=== PATIENT | male | born 1965 | race African-American/Black ===

== ENCOUNTER 2020-05-22 08:33 | Outpatient (REF) | payer BC, SELFPAY ==
[2020-05-22 09:42] LABS: MANUAL DIFF FLAG NO
[2020-05-22 09:45] LABS: Basophils Percent Auto 0.2 % (0-2); Eosinophils Percent Auto 0.3 % (0-4); Hematocrit 41.7 % (42-52); Hemoglobin 12.9 g/dl (14.0-18.0); Imm Gran Abs Auto 0.01 X10*3/uL (0.00-0.03); Imm Gran Pct Auto 0.2 % (0.0-0.4); Lymphocytes Absolute Auto 1.4 X10*3/uL (1.2-4.9); Lymphocytes Percent Auto 24.9 % (20-40); Mean Corpuscular HGB Conc 30.9 g/dl (31.0-36.0); Mean Corpuscular Hemoglobin 26.3 pg (27.0-33.0); Mean Corpuscular Volume 84.9 fL (80-98); Mean Platelet Volume 10.1 fL (9.4-12.4); Monocytes Absolute Auto 1.1 X10*3/uL (0.1-1.2); Monocytes Percent Auto 18.6 % (2-11); Neutrophils Absolute Auto 3.2 X10*3/uL (2.0-8.3); Neutrophils Percent Auto 55.8 % (45-73); Platelet Count 336 X10*3/uL (160-400); Red Blood Count 4.91 X10*6/uL (4.60-5.80); Red Cell Distribution Width 15.1 % (11.0-16.0); White Blood Count 5.8 X10*3/uL (4.8-10.8)
[2020-05-22 10:04] LABS: Glucose Urine UA 100 MG/DL (NEG); Leukocyte Esterase Urine NEG (NEG); Nitrite Urine NEG (NEG); Specific Gravity - Urine >= 1.030 (1.005-1.025); Urine Blood TRACE (NEG); Urine Ketones NEG (NEG); Urine Protein NEG (NEG-TRACE)
[2020-05-22 10:06] LABS: Appearance Urine CLEAR; Color Urine YELLOW
[2020-05-22 10:16] LABS: RBC Urine 0 /HPF (0); Squamous Epithelial Cell Urine TRACE /LPF; WBC Urine 0 /HPF (0-4)
[2020-05-22 10:17] LABS: Mucus Urine 3+ /LPF
[2020-05-22 10:27] LABS: Alanine Aminotransferase 21 U/L (0-40); Alkaline Phosphatase 92 U/L (39-117); Anion Gap 11 (12-20); Aspartate Amino Transferase 29 U/L (5-37); Bilirubin Total 0.6 mg/dL (0.0-1.0); Blood Urea Nitrogen 12 mg/dL (9-16); Calcium 8.9 mg/dL (8.4-10.2); Carbon Dioxide 30 mmol/L (22-29); Chloride 100 mmol/L (96-108); Cholesterol 187 mg/dL; Estimated Glomerular Filt Rate > 60; Glucose Fasting 83 mg/dL (60-99); HDL Cholesterol 32 mg/dL; LDL Cholesterol Calculated 141 mg/dl; Potassium 4.1 mmol/l (3.3-5.1); Sodium 137 mmol/L (135-145); Total Protein 8.2 g/dL (6.5-8.0); Triglycerides 74 mg/dL
[2020-05-22 10:48] LABS: Prostate Specific Antigen Scr 0.24 ng/mL (<0.05-4.0)
[2020-05-22 11:25] LABS: Erythrocyte Sedimentation Rate 32 MM/HR (0-15)
== END 2020-05-22 08:34 | disposition home or self-care (01) ==
LOC: HO.LAB 08:33
PROVIDERS: Visit Provider Internal Medicine
DX: Z00.00 Encounter for general adult medical examination without abnormal findings (principal); K50.90 Crohn's disease, unspecified, without complications; R70.0 Elevated erythrocyte sedimentation rate; D50.9 Iron deficiency anemia, unspecified; E78.00 Pure hypercholesterolemia, unspecified; I10 Essential (primary) hypertension
CPT/HCPCS: 36415; 80053; 80061; 81001; 81003; 84153; 85025; 85652

== ENCOUNTER 2021-05-29 11:07 | Outpatient (REF) | payer BC, SELFPAY ==
[2021-05-29 11:11] LABS: MANUAL DIFF FLAG NO
[2021-05-29 11:38] LABS: Basophils Percent Auto 0.3 % (0-2); Eosinophils Absolute Auto 0.3 X10*3/uL (0.0-0.4); Eosinophils Percent Auto 3.9 % (0-4); Hematocrit 39.6 % (42.0-52.0); Hemoglobin 12.1 g/dl (14.0-18.0); Imm Gran Abs Auto 0.02 X10*3/uL (0.00-0.03); Imm Gran Pct Auto 0.3 % (0.0-0.4); Lymphocytes Absolute Auto 2.4 X10*3/uL (1.2-4.9); Lymphocytes Percent Auto 33.5 % (20-40); Mean Corpuscular HGB Conc 30.6 g/dl (31.0-36.0); Mean Corpuscular Volume 85.2 fL (80.0-98.0); Mean Platelet Volume 10.3 fL (9.4-12.4); Monocytes Absolute Auto 0.9 X10*3/uL (0.1-1.2); Monocytes Percent Auto 13.1 % (2-11); Neutrophils Absolute Auto 3.5 x10*3/uL (2.0-8.3); Neutrophils Percent Auto 48.9 % (45-73); Platelet Count 385 X10*3/uL (160-400); Red Blood Count 4.65 X10*6/uL (4.60-5.80); Red Cell Distribution Width 15.1 % (11.0-16.0); White Blood Count 7.1 X10*3/uL (4.8-10.8)
[2021-05-29 11:48] LABS: Appearance Urine CLEAR; Color Urine YELLOW; Glucose Urine UA NEG (NEG); Leukocyte Esterase Urine NEG (NEG); Nitrite Urine NEG (NEG); Urine Blood NEG (NEG); Urine Ketones NEG (NEG); Urine Protein NEG (NEG-TRACE)
[2021-05-29 12:59] LABS: Alanine Aminotransferase 32 U/L (0-40); Albumin Level 3.7 g/dL (3.5-5.0); Alkaline Phosphatase 93 U/L (39-117); Anion Gap 11 (12-20); Aspartate Amino Transferase 37 U/L (5-37); Bilirubin Total 0.5 mg/dL (0.0-1.0); Blood Urea Nitrogen 10 mg/dL (9-16); Calcium 9.2 mg/dL (8.4-10.2); Carbon Dioxide 27 mmol/L (22-29); Chloride 102 mmol/L (96-108); Cholesterol 203 mg/dL; Estimated Glomerular Filt Rate > 60; Glucose Random 73 mg/dL (60-115); HDL Cholesterol 35 mg/dL; Iron 64 mcg/dL (45-160); LDL Cholesterol Calculated 146 mg/dl; Percent Iron Saturation 21 % (15-50); Potassium 4.2 mmol/L (3.3-5.1); Sodium 136 mmol/L (135-145); Total Iron Binding Capacity 307 mcg/dL (228-428); Total Protein 7.7 g/dL (6.5-8.0); Triglycerides 113 mg/dL; Unsaturated Iron Binding 243 ug/dL
== END 2021-05-29 11:08 | disposition home or self-care (01) ==
LOC: HO.LNP 11:07
PROVIDERS: Visit Provider Internal Medicine
DX: Z00.00 Encounter for general adult medical examination without abnormal findings (principal); D50.9 Iron deficiency anemia, unspecified; E78.00 Pure hypercholesterolemia, unspecified; I10 Essential (primary) hypertension
CPT/HCPCS: 80053; 80061; 81003; 83540; 84153; 85025

== ENCOUNTER 2022-06-03 10:54 | Outpatient (REF) | payer BC, SELFPAY ==
[2022-06-03 10:58] LABS: MANUAL DIFF FLAG NO
[2022-06-03 11:04] LABS: Basophils Percent Auto 0.4 % (0-2); Eosinophils Absolute Auto 0.3 X10*3/uL (0.0-0.4); Eosinophils Percent Auto 4.1 % (0-4); Hematocrit 46.4 % (42.0-52.0); Hemoglobin 14.7 g/dl (14.0-18.0); Imm Gran Abs Auto 0.01 X10*3/uL (0.00-0.03); Imm Gran Pct Auto 0.1 % (0.0-0.4); Lymphocytes Absolute Auto 2.7 X10*3/uL (1.2-4.9); Lymphocytes Percent Auto 38.6 % (20-40); Mean Corpuscular HGB Conc 31.7 g/dl (31.0-36.0); Mean Corpuscular Hemoglobin 27.8 pg (27.0-33.0); Mean Corpuscular Volume 87.9 fL (80.0-98.0); Mean Platelet Volume 10.7 fL (9.4-12.4); Monocytes Absolute Auto 0.9 X10*3/uL (0.1-1.2); Monocytes Percent Auto 12.3 % (2-11); Neutrophils Absolute Auto 3.2 x10*3/uL (2.0-8.3); Neutrophils Percent Auto 44.5 % (45-73); Platelet Count 333 X10*3/uL (160-400); Red Blood Count 5.28 X10*6/uL (4.60-5.80); Red Cell Distribution Width 14.4 % (11.0-16.0); White Blood Count 7.1 X10*3/uL (4.8-10.8)
[2022-06-03 11:08] LABS: Appearance Urine Clear; Color Urine Yellow; Glucose Urine UA Negative (Negative); Leukocyte Esterase Urine Negative (Negative); Nitrite Urine Negative (Negative); Specific Gravity - Urine 1.015 (1.005-1.025); Urine Blood Negative (Negative); Urine Ketones Negative (Negative); Urine Protein Negative (Neg-Trace)
[2022-06-03 11:14] LABS: Bacteria Urine None Seen (None Seen); Hyaline Casts Urine 0-2 /LPF (0-2); RBC Urine 0-2 /HPF (0-2); Squamous Epithelial Cell Urine 0-2 /HPF (0-2); WBC Urine 0-5 /HPF (0-5)
[2022-06-03 11:49] LABS: Alanine Aminotransferase 33 U/L (0-40); Albumin Level 4.2 g/dL (3.5-5.0); Alkaline Phosphatase 85 U/L (39-117); Anion Gap 14 (12-20); Aspartate Amino Transferase 30 U/L (5-37); Bilirubin Total 0.6 mg/dL (0.0-1.0); Blood Urea Nitrogen 13 mg/dL (9-16); Calcium 9.6 mg/dL (8.4-10.2); Carbon Dioxide 29 mmol/L (22-29); Chloride 102 mmol/L (96-108); Cholesterol 242 mg/dL; Estimated Glomerular Filt Rate 58; Glucose Fasting 95 mg/dL (60-99); HDL Cholesterol 45 mg/dL; Iron 104 mcg/dL (45-160); LDL Cholesterol Calculated 178 mg/dl; Percent Iron Saturation 29 % (15-50); Potassium 3.9 mmol/L (3.3-5.1); Sodium 141 mmol/L (135-145); Total Iron Binding Capacity 360 mcg/dL (228-428); Total Protein 8.1 g/dL (6.5-8.0); Triglycerides 97 mg/dL; Unsaturated Iron Binding 256 ug/dL
[2022-06-03 11:55] LABS: PSA,Total (Free>4and<10) 0.28 ng/mL (0.00-4.00)
== END 2022-06-03 10:55 | disposition home or self-care (01) ==
LOC: HO.LNP 10:54
PROVIDERS: Visit Provider Internal Medicine
DX: Z00.00 Encounter for general adult medical examination without abnormal findings (principal); Z12.5 Encounter for screening for malignant neoplasm of prostate; E78.00 Pure hypercholesterolemia, unspecified; I10 Essential (primary) hypertension; D50.9 Iron deficiency anemia, unspecified
CPT/HCPCS: 80053; 80061; 81001; 83540; 84153; 85025

== ENCOUNTER 2022-12-13 11:15 | Outpatient (REF) | payer BC, SELFPAY ==
[2022-12-13 12:40] LABS: Cholesterol 254 mg/dL; HDL Cholesterol 39 mg/dL; LDL Cholesterol Calculated 192 mg/dl; Triglycerides 115 mg/dL
[2022-12-13 13:46] LABS: Reflex LDLD? No
== END 2022-12-13 11:16 | disposition home or self-care (01) ==
LOC: HO.LNP 11:15
PROVIDERS: Visit Provider Internal Medicine
DX: E78.00 Pure hypercholesterolemia, unspecified (principal)
CPT/HCPCS: 80061

== ENCOUNTER 2023-06-10 11:37 | Outpatient (REF) | payer BC, SELFPAY ==
[2023-06-10 11:42] LABS: MANUAL DIFF FLAG NO
[2023-06-10 11:54] LABS: Basophils Percent Auto 0.4 % (0-2); Eosinophils Absolute Auto 0.3 X10*3/uL (0.0-0.4); Eosinophils Percent Auto 3.4 % (0-4); Hematocrit 44.9 % (42.0-52.0); Hemoglobin 13.8 g/dl (14.0-18.0); Imm Gran Abs Auto 0.04 X10*3/uL (0.00-0.03); Imm Gran Pct Auto 0.5 % (0.0-0.4); Lymphocytes Absolute Auto 2.8 X10*3/uL (1.2-4.9); Lymphocytes Percent Auto 34.5 % (20-40); Mean Corpuscular HGB Conc 30.7 g/dl (31.0-36.0); Mean Corpuscular Hemoglobin 26.6 pg (27.0-33.0); Mean Corpuscular Volume 86.5 fL (80.0-98.0); Mean Platelet Volume 10.5 fL (9.4-12.4); Monocytes Absolute Auto 0.9 X10*3/uL (0.1-1.2); Neutrophils Absolute Auto 4.1 x10*3/uL (2.0-8.3); Neutrophils Percent Auto 50.2 % (45-73); Platelet Count 359 X10*3/uL (160-400); Red Blood Count 5.19 X10*6/uL (4.60-5.80); Red Cell Distribution Width 14.7 % (11.0-16.0); White Blood Count 8.2 X10*3/uL (4.8-10.8)
[2023-06-10 11:59] LABS: Appearance Urine Clear; Color Urine Yellow; Glucose Urine UA Negative (Negative); Leukocyte Esterase Urine Negative (Negative); Nitrite Urine Negative (Negative); Specific Gravity - Urine 1.025 (1.005-1.025); Urine Blood Negative (Negative); Urine Ketones Negative (Negative); Urine Protein Negative (Neg-Trace)
[2023-06-10 12:02] LABS: Bacteria Urine None Seen (None Seen); Hyaline Casts Urine 0-2 /LPF (0-2); RBC Urine 0-2 /HPF (0-2); Squamous Epithelial Cell Urine 0-2 /HPF (0-2); WBC Urine 0-5 /HPF (0-5)
[2023-06-10 12:17] LABS: Alanine Aminotransferase 26 U/L (0-40); Alkaline Phosphatase 97 U/L (39-117); Anion Gap 8 (12-20); Aspartate Amino Transferase 26 U/L (5-37); Bilirubin Total 0.6 mg/dL (0.0-1.0); Blood Urea Nitrogen 12 mg/dL (9-16); Calcium 9.9 mg/dL (8.4-10.2); Carbon Dioxide 30 mmol/L (22-29); Chloride 104 mmol/L (96-108); Cholesterol 224 mg/dL (<200); Estimated Glomerular Filt Rate > 60; Glucose Fasting 85 mg/dL (60-99); HDL Cholesterol 43 mg/dL (>40); Iron 66 mcg/dL (45-160); LDL Cholesterol Calculated 159 mg/dL (<100); Percent Iron Saturation 23 % (15-50); Potassium 3.9 mmol/L (3.3-5.1); Sodium 138 mmol/L (135-145); Total Iron Binding Capacity 291 mcg/dL (228-428); Total Protein 8.4 g/dL (6.5-8.0); Triglycerides 110 mg/dL (<150); Unsaturated Iron Binding 225 ug/dL
[2023-06-10 12:27] LABS: Prostate Specific Antigen 0.29 ng/mL (<0.05-4.0)
== END 2023-06-10 11:38 | disposition home or self-care (01) ==
LOC: HO.LNP 11:37
PROVIDERS: Visit Provider Internal Medicine
DX: Z00.00 Encounter for general adult medical examination without abnormal findings (principal); Z12.5 Encounter for screening for malignant neoplasm of prostate; D50.9 Iron deficiency anemia, unspecified; E78.00 Pure hypercholesterolemia, unspecified; I10 Essential (primary) hypertension
CPT/HCPCS: 80053; 80061; 81001; 83540; 84153; 85025

== ENCOUNTER 2024-06-17 11:19 | Outpatient (REF) | payer BC, SELFPAY ==
[2024-06-17 11:23] LABS: MANUAL DIFF FLAG NO
[2024-06-17 12:08] LABS: Appearance Urine Clear; Color Urine Yellow; Glucose Urine UA Negative (Negative); Leukocyte Esterase Urine Negative (Negative); Nitrite Urine Negative (Negative); PH 5.5 (5.0-9.0); Urine Blood Negative (Negative); Urine Ketones Negative (Negative); Urine Protein Negative (Neg-Trace)
[2024-06-17 12:09] LABS: Basophils Percent Auto 0.4 % (0-2); Eosinophils Absolute Auto 0.3 X10*3/uL (0.0-0.4); Eosinophils Percent Auto 3.8 % (0-4); Hematocrit 42.6 % (42.0-52.0); Hemoglobin 13.6 g/dl (14.0-18.0); Imm Gran Abs Auto 0.03 X10*3/uL (0.00-0.03); Imm Gran Pct Auto 0.4 % (0.0-0.4); Lymphocytes Absolute Auto 2.6 X10*3/uL (1.2-4.9); Lymphocytes Percent Auto 34.9 % (20-40); Mean Corpuscular HGB Conc 31.9 g/dl (31.0-36.0); Mean Corpuscular Hemoglobin 27.9 pg (27.0-33.0); Mean Corpuscular Volume 87.5 fL (80.0-98.0); Mean Platelet Volume 10.6 fL (9.4-12.4); Monocytes Absolute Auto 0.8 X10*3/uL (0.1-1.2); Neutrophils Absolute Auto 3.6 x10*3/uL (2.0-8.3); Neutrophils Percent Auto 49.5 % (45-73); Platelet Count 304 X10*3/uL (160-400); Red Blood Count 4.87 X10*6/uL (4.60-5.80); Red Cell Distribution Width 13.9 % (11.0-16.0); White Blood Count 7.3 X10*3/uL (4.8-10.8)
[2024-06-17 12:12] LABS: Bacteria Urine None Seen (None Seen); Hyaline Casts Urine 0-2 /LPF (0-2); RBC Urine 0-2 /HPF (0-2); Squamous Epithelial Cell Urine 0-2 /HPF (0-2); WBC Urine 0-5 /HPF (0-5)
[2024-06-17 12:37] LABS: Alanine Aminotransferase 32 U/L (0-40); Alkaline Phosphatase 76 U/L (39-117); Anion Gap 11 (12-20); Aspartate Amino Transferase 42 U/L (5-37); Bilirubin Total 0.6 mg/dL (0.0-1.0); Blood Urea Nitrogen 14 mg/dL (9-16); Calcium 9.4 mg/dL (8.4-10.2); Carbon Dioxide 27 mmol/L (22-29); Chloride 104 mmol/L (96-108); Cholesterol 188 mg/dL (<200); Estimated Glomerular Filt Rate > 60; Glucose Fasting 86 mg/dL (60-99); HDL Cholesterol 34 mg/dL (>40); Iron 81 mcg/dL (45-160); LDL Cholesterol Calculated 134 mg/dL (<100); Percent Iron Saturation 28 % (15-50); Potassium 3.8 mmol/L (3.3-5.1); Sodium 138 mmol/L (135-145); Total Iron Binding Capacity 285 mcg/dL (228-428); Total Protein 7.8 g/dL (6.5-8.0); Triglycerides 101 mg/dL (<150); Unsaturated Iron Binding 204 ug/dL
[2024-06-17 12:45] LABS: PSA,Total (Free>4and<10) 0.31 ng/mL (0.00-4.00)
--- OUTSIDE RECORDS SUMMARY | 2024-06-23 01:54 | XMS_ITS | Patient Health Record ---
Author Organization Antonio Leung MD Address [address] [place], [place] [id number] Care Team Providers Care General Internal Medicine Doctor Name Role Phone Antonio Leung Primary Care Provider [phone] ALLERGIES No Known Allergies RESULTS Component Value Reference Range Notes Complete Blood Count Auto Di ff Reviewed date:06/17/2024 03:15:00 PM Interpretation: Performing Lab:[facility], [address] [place] [phone] Notes/Report: White Blood Count 7.3 4.8-10.8 X10*3/uL Red Blood Count 4.87 4.60-5.80 X10*6/uL Hemoglobin 13.6 14.0-18.0 g/dl Hematocrit 42.6 42.0-52.0 % Mean Corpuscular Volume 87.5 80.0-98.0 fL Mean Corpuscular Hemoglobin 27.9 27.0-33.0 pg Mean Corpuscular HGB Conc 31.9 31.0-36.0 g/dl Red Cell Distribution Width 13.9 11.0-16.0 % Platelet Count 304 160-400 X10*3/uL Mean Platelet Volume 10.6 9.4-12.4 fL Neutrophils Percent Auto 49.5 45-73 % Imm Gran Pct Auto 0.4 0.0-0.4 % Lymphocytes Percent Auto 34.9 20-40 % Monocytes Percent Auto 11.0 2-11 % Eosinophils Percent Auto 3.8 0-4 % Basophils Percent Auto 0.4 0-2 % NRBC Pct Auto 0.0 0.0-0.2 /100WBC Neutrophils Absolute Auto 3.6 2.0-8.3 x10*3/u L Imm Gran Abs Auto 0.03 0.00-0.03 X10*3/uL Lymphocytes Absolute Auto 2.6 1.2-4.9 X10*3/u L Monocytes Absolute Auto 0.8 0.1-1.2 X10*3/uL Eosinophils Absolute Auto 0.3 0.0-0.4 X10*3/u L Basophils Absolute Auto 0.0 0.0-0.2 X10*3/uL NRBC Abs Auto 0.000 0.0-0.012 X10*3/uL Comprehensive [place]. Panel Fa st Reviewed date:06/17/2024 12:50:37 PM Interpretation: Performing Lab:[facility], [address] [place] [phone] Notes/Report: Sodium 138 135-145 mmol/L Potassium 3.8 3.3-5.1 mmol/L Chloride 104 96-108 mmol/L Carbon Dioxide 27 22-29 mmol/L Anion Gap 11 12-20 Blood Urea Nitrogen 14 9-16 mg/dL Creatinine 1.12 0.5-1.4 mg/dL Estimated Glomerular Filt Rate > 60 Chronic Kidney Disease: Estimated GFR < 60 mL/min/1.73m2 Severe Kidney Disease: Estimated GFR < 15 mL/min/1.73m2 Glucose Fasting 86 60-99 mg/dL Calcium 9.4 8.4-10.2 mg/dL Bilirubin Total 0.6 0.0-1.0 mg/dL Aspartate Amino Transferase 42 5-37 U/L Alanine Aminotransferase 32 0-40 U/L Total Protein 7.8 6.5-8.0 g/dL Albumin Level 4.0 3.5-5.0 g/dL Alkaline Phosphatase 76 39-117 U/L IRON PROFILE Reviewed date:06/17/2024 12:54:01 PM Interpretation: Performing Lab:[address] [phone] Notes/Report: Iron 81 45-160 mcg/dL Total Iron Binding Capacity 285 228-428 mcg/d L Percent Iron Saturation 28 15-50 % Unsaturated Iron Binding 204 Lipid Panel Reviewed date:06/17/2024 12:53:52 PM Interpretation: Performing Lab:[facility], [address] [place] [phone] Notes/Report: Triglycerides 101 <150 mg/dL Desirable Triglyceride: less than 150 mg/dL Borderline High Triglyceride 150-199 mg/dL High Triglyceride: 200-499 mg/dL Very High Triglyceride: greater than or equal to 5OO mg/dL Cholesterol 188 <200 mg/dL Desirable Cholesterol: less than 200 mg/dL Borderline High Cholesterol: 200-239 mg/dL High Cholesterol: greater than 239 mg/dL LDL Cholesterol Calculated 134 <100 mg/dL Desirable LDL: less than 100 mg/dL Near Optimal/Above Optimal LDL: 110-129 mg/dL Borderline High LDL: 130-159 mg/dL High LDL: 160-189 mg/dL Very High LDL: greater than or equal to 190 mg/dL HDL Cholesterol 34 >40 mg/dL Desirable HDL: greater than 40 mg/dL Note: This HDL assay may give artificially low results in patients with liver disease. PSA,Total (Free>4and<10) Reviewed date:06/17/2024 12:50:45 PM Interpretation: Performing Lab:[address] [phone] Notes/Report: PSA,Total (Free>4and<10) 0.31 0.00-4.00 ng/mL A Free PSA was not performed: The percentage of Free PSA can be used to enhance the differentiation of prostate cancer from benign prostatic disease in subjects whose PSA levels are between 4.0 and 10.0 ng/mL. For subjects whose PSA levels are below 4.0 or above 10.0 ng/mL, the risk of prostate cancer is determined on the basis of the PSA alone. Therefore the % Free PSA is recommended only for those subjects whose PSA levels are between 4.0 and 10.0 ng/mL. PSA methodology: Evans Alinity i Chemiluminescent Microparticle Immunoassay (CMIA) UA ClnCatch+Micro w/rflx Cul t Reviewed date:06/17/2024 12:55:53 PM Interpretation: Performing Lab:[facility], [address] [place] [phone] Notes/Report: Urine, Clean Catch Color Urine Yellow Appearance Urine Clear PH 5.5 5.0-9.0 Glucose Urine UA Negative Negative mg/dL Urine Blood Negative Negative Specific [place] - Urine 1.020 1.005-1.025 Urine Protein Negative Neg-Trace mg/dL Urine Ketones Negative Negative mg/dL Nitrite Urine Negative Negative Leukocyte Esterase Urine Negative Negative RBC Urine 0-2 0-2 /HPF WBC Urine 0-5 0-5 /HPF Squamous Epithelial Cell Urine 0-2 0-2 /HPF Bacteria Urine None Seen None Seen Hyaline Casts Urine 0-2 0-2 /LPF REASON FOR REFERRAL No Information MEDICATIONS Medication SIG (Take, Route, Frequency, Duration) Notes Start Date End Date Status Lisinopril-hydroCHLOROthia zide 20-12.5 MG take 1 tablet by mouth every day Orally Once a day Active IMMUNIZATIONS Vaccine Route Administration Date Status Comme nts Fluarix Quadrivalent IM Intramuscular 05/05/2015 Administe red Covid Vaccine Unknown 10/28/2020 Administered Pfizer SARS-COV-2 Pfizer Unknown 11/18/2020 Administered Fluarix Quadrivalent IM Intramuscular 06/10/2023 Administe red Fluarix Quadrivalent Unknown 07/23/2016 Refused Shingrix Unknown 03/11/2019 Refused Fluarix Quadrivalent Unknown 06/13/2022 Refused DECLINED, FLU Unknown 03/28/2014 Pending SOCIAL HISTORY Tobacco Use: Social History Observation Description Date Details (start date - stop date) Never Smoker NA - NA Sex Assigned At : Social History Observation Description Sex Assigned At Unknown Tobacco Use/Smoking Question Answer Notes Patient is a nonsmoker Additional Findings: Tobacco Non-User Cu rrent non-smoker, currently using no form of tobacco Alcohol Screen Question Answer Notes Did you have a drink containing alcohol in the p ast year? No Points 0 Interpretation Negative PROBLEMS Problem Type ICD Code Onset Dates Problem Status W/U Status Risk SNOMED Code Notes Problem Essential hypertension (I10) Active confirmed 77180910 Problem Iron deficiency anemia, unspecified iron deficiency anemia type (D50.9) Active confirmed 54804377 Problem Crohns disease without complication, unspecified gastrointestinal tract location (K50.90) Active confirmed 83920089 Problem Elevated sedimentation rate (R70.0) Active confirmed 391129648 Problem Elevated cholesterol (E78.00) Active confirmed 96996616 Problem BMI 30.0-30.9,adult (Z68.30) Active confirmed 797557209 VITAL SIGNS Blood pressure diastolic 76 mm Hg 02/24/2024 Height 73 in 02/24/2024 Blood pressure systolic 112 mm Hg 02/24/2024 Weight 250 lbs 02/24/2024 BMI 32.98 kg/m2 02/24/2024 Encounters Encounter Location Date Provider Diagnosis Antonio Leung MD [address] [place] [id number] 06/17/2024 Antonio Leung Blood tests for rout ine general physical examination Z00.00 ; Iron deficiency anemia, unspecified iron deficiency anemia type D50.9 and Elevated cholesterol E78.00 Antonio Leung MD [address] [place] [id number] 12/18/2023 Antonio Leung Essential hypertensi on I10 Antonio Leung MD [address] [place] [address] [place] [id number] 02/24/2024 Antonio Leung Crohns disease witho ut complication, unspecified gastrointestinal tract location K50.90 and Essential hypertension I10 ASSESSMENTS Encounter Date Diagnosis Assessment Notes Treatment Notes Treatment Clinical Notes 06/17/2024 Iron deficiency anemia, unspecified iron deficiency anemia type (ICD-10 - D50.9) 06/17/2024 Blood tests for routine general physical examination (ICD-10 - Z00.00) 12/18/2023 Essential hypertensi on (ICD-10 - I10) patient verbalized understanding of change in medication and will continue to monitor 02/24/2024 Essential hypertensi on (ICD-10 - I10) well controlled, will cntinue current regiment 02/24/2024 Crohns disease witho ut complication, unspecified gastrointestinal tract location (ICD-10 - K50.90) advised him to make appt for follow up with dr seay as his last colonoscopy was abnormal. have explained that dr seay wanted him to be on meds to prevent progression but he is uninterested in that, Total time spent on the date of the encounter is 35 minutes including both face to face time spent and time spent reviewing documentation, and counseling the patient. 06/17/2024 Elevated cholesterol (ICD-10 - E78.00) PLAN OF TREATMENT Pending Test Test Name Order Date Electrocardiogram (EKG) 03/03/2018 Next Appt Details Provider Name:Antonio rodriguezr, 06/24/2024 09:30:00 AM, [address] [place] [address], Suite [facility], [place], [place], [phone], Insurance Providers Payer Name Payer Address Payer Phone Subscriber Number Group Number Insured Name Patient Relationship to Insured Coverage Start Date Coverage End Date [facility] [address] [place], [place] [phone] [id number] Caesar Humphrey Self - patient is the insured MEDICAL (GENERAL) HISTORY Medical History History ICD Code chron's disease colonoscopy 2011 due in 5 ye ars, declined in September of 2018; Colonoscopy 08/20/2019 - Dr. Seay (repeat pending biopsy)
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
--- OUTSIDE RECORDS SUMMARY | 2024-06-23 01:54 | XMS_ITS ---
Author Organization Antonio Leung MD Address [address] [place] [phone] Care Team Providers Care Power System Engineer Name Role Phone Antonio Leung Primary Care Provider ALLERGIES No Known Allergies REASON FOR VISIT 6 MO F/U MEDICATIONS Medication SIG (Take, Route, Frequency, Duration) Notes Start Date End Date Status Lisinopril-hydroCHLOROthia zide 20-12.5 MG take 1 tablet by mouth every day Orally Once a day for 90 days Active VITAL SIGNS BMI 32.98 kg/m2 12/18/2023 Blood pressure systolic 142 mm Hg 12/18/19 24 Blood pressure diastolic 90 mm Hg 024 Height 73 in 12/18/2023 Weight 250 lbs 12/18/2023 weight is up 9 pounds since 06-17-23 Encounters Encounter Location Date Provider Diagnosis Antonio Leung MD [address] [place] [phone] 12/18/2023 Antonio Leung Essential hypertension I10 ASSESSMENTS Encounter Date Diagnosis Assessment Notes Treatment Notes Treatment Clinical Notes 12/18/2023 Essential hypertension (ICD-10 - I10) patient verbalized understanding of change in medication and will continue to monitor PLAN OF TREATMENT Medication Medication Name Sig Start Date Stop Date Notes Lisinopril-hydroCHLOROthiazi de 20-12.5 MG take 1 tablet by mouth every day Orally Once a day for 90 days Treatment Notes Assessment Notes Essential hypertension patient verbalize d understanding of change in medication and will continue to monitor Next Appt Details Follow Up: 2 Months, Reason: Provider Name:Antonio richardson, 06/24/2024 09:30:00 AM, [address], [address], [place], [place], [phone], Progress Notes * Examination Category Sub-Category Detail Notes General Examination GENERAL APPEARANCE: alert, w ell hydrated, in no distress male HEAD: normocephalic HEART: no murmurs, rubs, ga llops regular rate and rhythm LUNGS: no wheezes, rales, r honchi good air movement clear to auscultation bilaterally
--- OUTSIDE RECORDS SUMMARY | 2024-06-23 01:54 | XMS_ITS ---
Author Organization Anotnio Leung MD Address [address] [place], [place] [phone] Care Team Providers Care Explosive Ordnance Disposal Technician Name Role Phone Antonio Leung Primary Care Provider RESULTS Component Value Reference Range Notes Complete Blood Count Auto Di ff Reviewed date:06/17/2024 03:15:00 PM Interpretation: Performing Lab:[facility], [address] [place] [phone] Notes/Report: White Blood Count 7.3 4.8-10.8 X10*3/uL [...] NRBC Abs Auto 0.000 0.0-0.012 X10*3/uL Comprehensive [place]. Panel Fa st Reviewed date:06/17/2024 12:50:37 PM Interpretation: Performing Lab:[facility], [address] [place] [phone] Notes/Report: Sodium 138 135-145 mmol/L Potassium 3.8 [...] PROFILE Reviewed date:06/17/2024 12:54:01 PM Interpretation: Performing Lab:[address] [phone] Notes/Report: Iron 81 45-160 mcg/dL Total Iron Binding Capacity 285 228-428 mcg/d L Percent Iron Saturation 28 15-50 % Unsaturated Iron Binding 204 Lipid Panel Reviewed date:06/17/2024 12:53:52 PM Interpretation: Performing Lab:[address] [phone] Notes/Report: Triglycerides 101 <150 mg/dL Desirable Triglyceride: [...] (Free>4and<10) Reviewed date:06/17/2024 12:50:45 PM Interpretation: Performing Lab:[address] [phone] Notes/Report: PSA,Total (Free>4and<10) 0.31 0.00-4.00 ng/mL A [...] t Reviewed date:06/17/2024 12:55:53 PM Interpretation: Performing Lab:[address] [phone] Notes/Report: Urine, Clean Catch Color Urine Yellow Appearance Urine Clear PH 5.5 5.0-9.0 Glucose Urine UA Negative Negative mg/dL Urine Blood Negative Negative Specific [place] - Urine 1.020 1.005-1.025 Urine Protein Negative Neg-Trace mg/dL Urine Ketones Negative Negative mg/dL Nitrite Urine Negative Negative Leukocyte Esterase Urine Negative Negative RBC Urine 0-2 0-2 /HPF WBC Urine 0-5 0-5 /HPF Squamous Epithelial Cell Urine 0-2 0-2 /HPF Bacteria Urine None Seen None Seen Hyaline Casts Urine 0-2 0-2 /LPF REASON FOR VISIT FASTING LABS Encounters Encounter Location Date Provider Diagnosis Antonio Leung MD [address] [place] [address] [address] [place], [place] [phone] 06/17/2024 Antonio Leung Blood tests for routine general physical examination Z00.00 ; Iron deficiency anemia, unspecified iron deficiency anemia type D50.9 and Elevated cholesterol E78.00 ASSESSMENTS Encounter Date Diagnosis Assessment Notes Treatment Notes Treatment Clinical Notes 06/17/2024 Blood tests for routine general physical examination (ICD-10 - Z00.00) 06/17/2024 Iron deficiency anemia, unspecified iron deficiency anemia type (ICD-10 - D50.9) 06/17/2024 Elevated cholesterol (ICD-10 - E78.00) PLAN OF TREATMENT Next Appt Details Provider Name:Antonio richardson, 06/24/2024 09:30:00 AM, [address] [place] [address], [address], [place], [place], [phone],
--- OUTSIDE RECORDS SUMMARY | 2024-06-23 01:54 | XMS_ITS ---
Author Organization Antonio Leung MD Address [address] [place] [phone] Care Team Providers Care Master Craftsman Name Role Phone Antonio Leung Primary Care Provider ALLERGIES No Known Allergies REASON FOR VISIT 2 MONTH F/U MEDICATIONS Medication SIG (Take, Route, Frequency, Duration) Notes Start Date End Date Status Lisinopril-hydroCHLOROthia zide 20-12.5 MG take 1 tablet by mouth every day Orally Once a day Active VITAL SIGNS BMI 32.98 kg/m2 02/24/2024 Blood pressure systolic 112 mm Hg 02/24/20 24 Blood pressure diastolic 76 mm Hg 024 Height 73 in 02/24/2024 Weight 250 lbs 02/24/2024 Encounters Encounter Location Date Provider Diagnosis Antonio Leung MD [address] [place] [address] Drive [address] [place] [phone] 02/24/2024 Antonio Leung Crohns disease witho ut complication, unspecified gastrointestinal tract location K50.90 and Essential hypertension I10 ASSESSMENTS Encounter Date Diagnosis Assessment Notes Treatment Notes Treatment Clinical Notes 02/24/2024 Crohns disease witho ut complication, unspecified [...] spent reviewing documentation, and counseling the patient. 02/24/2024 Essential hypertensi on (ICD-10 - I10) well controlled, will cntinue current regiment PLAN OF TREATMENT Medication Medication Name Sig Start Date Stop Date Notes Lisinopril-hydroCHLOROthiazi de 20-12.5 MG take 1 tablet by mouth every day Orally Once a day Treatment Notes Assessment Notes Crohns disease without compl ication, unspecified gastrointestinal tract location advised him to make appt for follow [...] spent reviewing documentation, and counseling the patient. Essential hypertension well controlled, will cntinue current regiment Next Appt Details Provider Name:Antonio richardson, 06/24/2024 09:30:00 AM, [address] [facility], [address], [place], [place], [phone], Progress Notes * Examination Category Sub-Category Detail Notes General Examination GENERAL APPEARANCE: alert, w ell hydrated, in no distress HEART: regular rate and rhy thm, no murmurs, rubs, gallops LUNGS: no wheezes, rales, r honchi, good air movement, clear to auscultation bilaterally ABDOMEN: soft, nontender, non distended, no organomegaly SKIN: good turgor, warm an d dry
== END 2024-06-17 11:20 | disposition home or self-care (01) ==
LOC: HO.LNP 11:19
PROVIDERS: Visit Provider Internal Medicine
DX: Z00.00 Encounter for general adult medical examination without abnormal findings (principal); D50.9 Iron deficiency anemia, unspecified; E78.00 Pure hypercholesterolemia, unspecified; Z12.5 Encounter for screening for malignant neoplasm of prostate
CPT/HCPCS: 80053; 80061; 81001; 83540; 84153; 85025

== ENCOUNTER → 2025-01-28 13:58 | Outpatient (BNV) | payer BC, SELFPAY | PROVIDERS: Admitting Provider Physician Assistant; Emergency Provider Emergency Medicine Emergency Medical Services; PCP Internal Medicine; Visit Provider Internal Medicine | DX: R00.0 Tachycardia, unspecified (principal) | CPT/HCPCS: 93010 ==

== ENCOUNTER 2025-01-28 14:32 | Inpatient (IN) | payer BC, SELFPAY ==
[2025-01-28] VITALS (10 sets, daily range): BP systolic 127–174; BP diastolic 85–115; PULSE 90–123; RESP 16–22; TEMP 36.4–36.8; O2SAT 97–98; BMI 32.6
--- NOTE | ~2025-01-28 | MR_ITS ---
CLINICAL HISTORY: r o CVA --- Additional Notes or Special Instructions: to be done in AM MR Brain without gadolinium Comparison: CT/SR - VASCULAR CTA_HEAD_NECK (ADULT) - 01/29/25 01:[address]/SR - CT HEAD/BRAIN WO IV CON - 01/28/25 23:33 EDT Findings: There is restricted diffusion involving the right temporal-occipital region as well as the right thalamus. There is corresponding low signal on the ADC map. No intra-axial mass or hemorrhage. No midline shift. No hydrocephalus. Vascular flow voids are intact. Prominent somewhat linear T2 signal prolongation along the corpus callosum, juxtacortical and periventricular white matter. The orbits are normal. The sinuses and mastoid air cells are clear. No focal bone lesion. 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 Prominent white matter disease including the corpus callosum. Correlation for multiple sclerosis. This document has been electronically signed by: Von Alcantara MD on 01/29/2025 11:53:24
--- NOTE | ~2025-01-28 | CT_ITS ---
CLINICAL HISTORY: Left facial numbness, left arm numbness R O stroke --- Additional Notes or Special Instructions: , bleed; PT WAS INJECTED AT 17:30 - SPOKE WITH DR LOOMIS CT head without contrast Comparison: None provided Findings: Age-indeterminate possibly subacute right occipital infarct. No acute intracranial hemorrhage is identified. MRI may be of value to determine infarct age. Mild chronic ischemic white matter disease without volume loss. No acute process in sinuses or mastoids. No acute bony abnormality. Impression: Age-indeterminate possibly subacute right occipital infarct This document has been electronically signed by: Paul Vale MD on 01/29/2025 00:09:18
--- NOTE | ~2025-01-28 | XR_ITS ---
CLINICAL HISTORY: fall 5 view, pelvis and bilateral hips. Comparison: None provided Findings: No acute fracture or dislocation. The bilateral hips appear intact. IMPRESSION: 1. No acute fracture or dislocation injury identified at the bony pelvis or bilateral hips. This document has been electronically signed by: Josemanuel Gastelum MD on 01/29/2025 23:46:01
--- NOTE | ~2025-01-28 | CT_ITS ---
CLINICAL HISTORY: ?CVA --- Additional Notes or Special Instructions: INJECTED WITH PERMISSION FROM DR RUIZ CT angiography head and neck with contrast. 3-D postprocessing Comparison: CT/SR - CT HEAD/BRAIN WO IV CON - 01/28/25 23:33 EDT Findings: The bilateral common carotid arteries and cervical portions of the internal carotid arteries appear patent without hemodynamically significant stenosis. The vertebral arteries appear patent bilaterally at the level of the neck. No carotid or vertebral dissection is seen. There is no evidence of vasculitis. No focal consolidation or effusion identified within the visualized portions of the bilateral lung apices. Enlarged 1.5 cm short axis left paratracheal lymph node on axial image number 515 of series 9. The intracranial vertebrobasilar system appears patent. Cerebellar and left posterior cerebral arteries appear patent. There appears to be occlusion of the right P2 segment. Intracranial internal carotid arteries appear patent. Middle/anterior cerebral arteries also appear patent. No aneurysms visualized. Impression: 1. Patent bilateral carotid and vertebral arterial systems at the level of the neck without hemodynamically significant stenosis. 2. Occlusion of the right P2 segment. The anterior and posterior intracranial arterial circulation otherwise appears patent. This document has been electronically signed by: Josemanuel Gastelum MD on 01/29/2025 02:47:56
--- NOTE | ~2025-01-28 | CT_ITS ---
CLINICAL HISTORY: chest pain CT angiography of the chest with IV contrast. 3D/MIP post processing reconstructions were performed. COMPARISON: None provided. FINDINGS: Motion limits evaluation of the distal pulmonary arteries. No intraluminal filling defects within the main or lobar pulmonary arteries to suggest pulmonary embolism. No evidence of right heart strain. Visualized thyroid is unremarkable. No supraclavicular or axillary lymphadenopathy. Ascending aorta and main pulmonary artery are normal in caliber. No pericardial effusion. Normal esophagus. No pleural effusion. No consolidation. Trachea and central airways are clear. No significant bronchial wall thickening. No bronchiectasis. Visualized portions of the upper abdomen are unremarkable. Flowing marginal osteophytes along the lower thoracic spine. No acute fracture. IMPRESSION: 1. No evidence of pulmonary embolism within the main or lobar pulmonary arteries. Motion limits evaluation of the distal pulmonary arteries. 2. No acute intrathoracic findings. No evidence of pneumonia. This document has been electronically signed by: Yaron Flood MD on 01/28/2025 17:59:29
--- NOTE | 2025-01-28 13:58 | ECG_ITS ---
Test Reason : tachy Blood Pressure : */* mmHG Vent. Rate : 120 BPM Atrial Rate : 120 BPM P-R Int : 168 ms QRS Dur : 90 ms QT Int : 316 ms P-R-T Axes : 54 -21 30 degrees QTcB Int : 446 ms Sinus tachycardia Possible Left atrial enlargement Inferior infarct , age undetermined Abnormal ECG No previous ECGs available Referred By: Cristobal Brenner Electronically Signed By: OSCAR GASPAR
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
--- OUTSIDE RECORDS SUMMARY | 2025-01-28 14:43 | XMS_ITS | Patient Health Record ---
Author Organization Antonio Leung MD Address [address] [place], [place] [id number] Care Team Providers Care Corrective And Manual Arts Therapist Name Role Phone Antonio Leung Primary Care Provider [phone] Allergies No Known Allergies Results Component Value Reference Range Notes Complete Blood Count Auto Di ff Reviewed date:06/17/2024 03:15:00 PM Interpretation: Performing Lab:[facility], [address] [place] [phone] Notes/Report: White Blood Count 7.3 4.8-10.8 X10*3/uL [...] NRBC Abs Auto 0.000 0.0-0.012 X10*3/uL Comprehensive [place]. Panel Fa st Reviewed date:06/17/2024 12:50:37 PM Interpretation: Performing Lab:[facility], [address] [place] [phone] Notes/Report: Sodium 138 135-145 mmol/L Potassium 3.8 [...] PROFILE Reviewed date:06/17/2024 12:54:01 PM Interpretation: Performing Lab:[address] [phone] Notes/Report: Iron 81 45-160 mcg/dL Total Iron Binding Capacity 285 228-428 mcg/d L Percent Iron Saturation 28 15-50 % Unsaturated Iron Binding 204 Lipid Panel Reviewed date:06/17/2024 12:53:52 PM Interpretation: Performing Lab:[facility], [address] [place] [phone] Notes/Report: Triglycerides 101 <150 mg/dL Desirable Triglyceride: [...] (Free>4and<10) Reviewed date:06/17/2024 12:50:45 PM Interpretation: Performing Lab:[address] [phone] Notes/Report: PSA,Total (Free>4and<10) 0.31 0.00-4.00 ng/mL A [...] t Reviewed date:06/17/2024 12:55:53 PM Interpretation: Performing Lab:[facility], [address] [place] [phone] Notes/Report: Urine, Clean Catch Color Urine Yellow Appearance Urine Clear PH 5.5 5.0-9.0 Glucose Urine UA Negative Negative mg/dL Urine Blood Negative Negative Specific [place] - Urine 1.020 1.005-1.025 Urine Protein Negative Neg-Trace mg/dL Urine Ketones Negative Negative mg/dL Nitrite Urine Negative Negative Leukocyte Esterase Urine Negative Negative RBC Urine 0-2 0-2 /HPF WBC Urine 0-5 0-5 /HPF Squamous Epithelial Cell Urine 0-2 0-2 /HPF Bacteria Urine None Seen None Seen Hyaline Casts Urine 0-2 0-2 /LPF Occult Blood, Stool, Guaiac Reviewed date:06/24/2024 01:40:12 PM Interpretation:Negative Performing Lab: Notes/Report: Negative Occult Blood, Stool, Guaiac Neg Occult Blood, Stool, Guaiac Reviewed date:07/01/2024 03:20:36 PM Interpretation:Negative Performing Lab: Notes/Report: Negative Occult Blood, Stool, Guaiac Negx2 Reason For Referral No Information Medications Medication SIG (Take, Route, Frequency, Duration) Notes Start Date End Date Status Lisinopril-hydroCHLOROthia zide 20-12.5 MG take 1 tablet by mouth every day Orally Once a day Active Immunizations Vaccine Route Administration Date Status Comme nts Fluarix Quadrivalent IM Intramuscular 05/05/2015 Administe red Covid Vaccine Unknown 10/28/2020 Administered Pfizer SARS-COV-2 Pfizer Unknown 11/18/2020 Administered Fluarix Quadrivalent IM Intramuscular 06/10/2023 Administe red Fluarix Quadrivalent Unknown 07/23/2016 Refused Shingrix Unknown 03/11/2019 Refused Fluarix Quadrivalent Unknown 06/13/2022 Refused DECLINED, FLU Unknown 03/28/2014 Pending Social History Tobacco Use: Social History Observation Description Date Details (start date - stop date) Never Smoker NA - NA Tobacco Use/Smoking Question Answer Notes Patient is a nonsmoker Additional Findings: Tobacco Non-User Cu rrent non-smoker, currently using no form of tobacco Alcohol Screen Question Answer Notes Did you have a drink containing alcohol in the p ast year? No Points 0 Interpretation Negative Problems Problem Type SNOMED Code ICD Code Onset Dates Problem Status W/U Status Risk Notes Problem 450665296 Annual physical exam (Z00.00) Active confirmed Problem 57625160 Essential hypertension (I10) Active confirmed Problem 12748504 Iron deficiency anemia, unspecified iron deficiency anemia type (D50.9) Active confirmed Problem 75916257 Crohns disease without complication, unspecified gastrointestinal tract location (K50.90) Active confirmed Problem 164302993 Elevated sedimentation rate (R70.0) Active confirmed Problem 83609185 Elevated cholest jeffy (E78.00) Active confirmed Problem 414351252 BMI 30.0-30.9,ad ult (Z68.30) Active confirmed Vital Signs Blood pressure diastolic 86 mm Hg 12/23/2024 ryley ght is up 11 pounds since 06-24-24 Height 73 in 12/23/2024 weight is up 11 pounds since 06-24-24 Blood pressure systolic 124 mm Hg 12/23/2024 weig ht is up 11 pounds since 06-24-24 Weight 256 lbs 12/23/2024 weight is up 11 pounds since 06-24-24 BMI 33.77 kg/m2 12/23/2024 weight is up 11 pounds since 06-24-24 Encounters Encounter Location Date Provider Diagnosis Antonio Leung MD [address] [place] [id number] 06/17/2024 Antonio Leung Blood tests for rout ine general physical examination Z00.00 ; Iron deficiency anemia, unspecified iron deficiency anemia type D50.9 and Elevated cholesterol E78.00 Antonio Leung MD [address] [place] [id number] 02/24/2024 Antonio Leung Crohns disease witho ut complication, unspecified gastrointestinal tract location K50.90 and Essential hypertension I10 Antonio Leung MD [address] [place] [id number] 06/24/2024 Antonio Leung Iron deficiency anem ia, unspecified iron deficiency anemia type D50.9 ; Annual physical exam Z00.00 ; Elevated cholesterol E78.00 ; Essential hypertension I10 ; Colon cancer screening Z12.11 and Depression screening Z13.31 Antonio Leung MD [address] [place] [id number] 12/23/2024 Antonio Leung Crohns disease witho ut complication, unspecified gastrointestinal tract location K50.90 and Essential hypertension I10 Antonio Leung MD [address] [place] [id number] 07/01/2024 Antonio Leung Colon cancer screeni ng Z12.11 Antonio Leung MD [address] [place], [place] [phone] 01/28/2025 Antonio Leung Assessments Encounter Date Diagnosis (ICD Code) Assessment Notes Treatment Notes Treatment Clinical Notes Section Notes 06/17/2024 Blood tests for routine general physical examination (ICD-10 - Z00.00) 06/17/2024 Iron deficiency anemia, unspecified iron deficiency anemia type (ICD-10 - D50.9) 02/24/2024 Crohns disease without complication, unspecified gastrointestinal tract location (ICD-10 - [...] documentation, and counseling the patient. 02/24/2024 Essential hypertension (ICD-10 - I10) well controlled, will cntinue current regiment 06/24/2024 Iron deficiency anemia, unspecified iron deficiency anemia type (ICD-10 - D50.9) 06/24/2024 Annual physical exam (ICD-10 - Z00.00) labs reviewed and discussed with patient 12/23/2024 Crohns disease without complication, unspecified gastrointestinal tract location (ICD-10 - K50.90) doing well, no issues, will continue to monitor 07/01/2024 Colon cancer screening (ICD-10 - Z12.11) 06/17/2024 Elevated cholesterol (ICD-10 - E78.00) 06/24/2024 Elevated cholesterol (ICD-10 - E78.00) 12/23/2024 Essential hypertension (ICD-10 - I10) stable, will continue current regiment 06/24/2024 Essential hypertension (ICD-10 - I10) 06/24/2024 Colon cancer screening (ICD-10 - Z12.11) guaiac negative 06/24/2024 Depression screening (ICD-10 - Z13.31) 12/23/2024 Other has not been hiking like he usuallydoes. checks weight regularly Plan Of Treatment Pending Test Test Name Order Date Electrocardiogram (EKG) 03/03/2018 Next Appt Details Provider Name:Antonio Euceda ier, 06/21/2025 07:30:00 AM, [address], [address], [place], [place], [phone], Provider Name:Antonio Euceda ier, 06/28/2025 01:00:00 PM, [address], [address], [place], [place], [phone], Insurance Providers Payer Name Payer Address Payer Phone Subscriber Number Group Number Insured Name Patient Relationship to Insured Coverage Start Date Coverage End Date [facility] [address] [place], [place] [id number] [phone] [id number] Caesar Humphrey Self - patient is the insured Medical (General) History Medical History History ICD Code chron's disease colonoscopy 2011 due in 5 ye ars, declined in September of 2018; Colonoscopy 08/20/2019 - Dr. Seay (repeat pending biopsy)
--- OUTSIDE RECORDS SUMMARY | 2025-01-28 14:44 | XMS_ITS | Patient Health Record ---
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 No Points 0 Interpretation Negative Problems Problem Type SNOMED Code ICD Code Onset Dates Problem Status W/U Status Risk Notes Problem 82467096 Crohn's disease of both small and large intestine without complication (K50.80) Active confirmed Problem 290939465 Abnormal finding s in stool (R19.5) Active confirmed Problem 6743450 Crohns disease o f large intestine without complication (K50.10) Active confirmed Problem 18906979 Hypertension, unspecified type (I10) Active confirmed Problem 18408922 Anal stricture (K62.4) Active confirmed Plan Of Treatment Future Test Test Name Order Date COLONOSCOPY 08/01/2011 COLONOSCOPY 04/14/2019 Insurance Providers Payer Name Payer Address Payer Phone Subscriber Number Group Number Insured Name Patient Relationship to Insured Coverage Start Date Coverage End Date [facility] [address] [place], [place] [id number] CATHERINE GARCIA Self - patient is the insured Medical (General) History Medical History History ICD Code Crohn's disease, [...]
[2025-01-28 15:43] LABS: MANUAL DIFF FLAG NO
[2025-01-28 15:47] LABS: Hematocrit 43.4 % (42.0-52.0); Hemoglobin 14.6 g/dl (14.0-18.0); Imm Gran Abs Auto 0.02 X10*3/uL (0.00-0.03); Imm Gran Pct Auto 0.2 % (0.0-0.4); Lymphocytes Absolute Auto 1.4 X10*3/uL (1.2-4.9); Mean Corpuscular HGB Conc 33.6 g/dl (31.0-36.0); Mean Corpuscular Hemoglobin 28.3 pg (27.0-33.0); Mean Corpuscular Volume 84.1 fL (80.0-98.0); NRBC Abs Auto 0.000 X10*3/uL (0.0-0.012); NRBC Pct Auto 0.0 /100WBC (0.0-0.2); Platelet Count 282 X10*3/uL (160-400); Red Blood Count 5.16 X10*6/uL (4.60-5.80); White Blood Count 8.4 X10*3/uL (4.8-10.8)
[2025-01-28 16:02] LABS: Alanine Aminotransferase 38 U/L (0-40); Albumin Level 4.5 g/dL (3.5-5.0); Alkaline Phosphatase 76 U/L (39-117); Anion Gap 13 (12-20); Aspartate Amino Transferase 38 U/L (5-37); Blood Urea Nitrogen 7 mg/dL (9-16); Calcium 9.6 mg/dL (8.4-10.2); Carbon Dioxide 25 mmol/L (22-29); Chloride 104 mmol/L (96-108); Creatinine Clr Calc Pharmacy 105.2; Estimated Glomerular Filt Rate > 60; Potassium 3.9 mmol/L (3.3-5.1); Sodium 138 mmol/L (135-145); Total Protein 8.4 g/dL (6.5-8.0)
[2025-01-28 16:06] LABS: INTERNATIONAL NORM RATIO 1.0 (0.9-1.1); Prothrombin Time 11.9 SEC (10.9-12.4)
[2025-01-28 16:09] LABS: Partial Thromboplastin Time 26.8 SEC (26.0-36.8)
[2025-01-28 16:10] LABS: Troponin-I High Sensitivity < 2.7 ng/L (<3.5-35.0)
[2025-01-28 16:14] LABS: B Type Natriuretic Peptide < 10 pg/mL (<100)
[2025-01-28] MEDS: iohexoL 350 MG/ML 100 ML INFUS..BTL IV (17:29)
[2025-01-28 20:21] LABS: Appearance Urine Clear; Glucose Urine UA Negative (Negative); PH 8.0 (5.0-9.0); Specific Gravity - Urine 1.015 (1.005-1.025)
--- NOTE | 2025-01-28 21:09 | PC.NURSE ---
MRI form complete
[2025-01-29] VITALS (7 sets, daily range): BP systolic 114–170; BP diastolic 64–96; PULSE 60–80; RESP 16–20; TEMP 36.2–36.6; O2SAT 95–98; BMI 32.9
--- NOTE | 2025-01-29 01:36 | PM.IMHP ---
History of Present Illness Date of Service: 01/29/25 Attending physician on admission: Brian Villarreal Chief Complaint: numb, tingling face and hand L Patient is a 59-year-old male with a past medical history significant for hypertension, colitis and class 1 obesity, who presented to the ED due to numbness around the left side of his mouth, fingertips and left lower extremity all beginning around 12 30 yesterday. Patient does not denies any dysarthria or difficulties with his speech. He reports some mild balance issues but no weakness at all in the extremities or face. No difficulty swallowing. He does report an occipital headache and mild left eye blurriness, right side okay. He denies any URI symptoms, fever, chills, nausea, vomiting, abdominal pain or urinary symptoms. The patient is a poor historian. His speech is stuttered but he reports that his speech is at baseline. Review of Systems Constitutional: Constitutional: Denies body ache(s), Denies chills, Denies fatigue, Denies fever(s) and Reports headache(s) Eyes: Eyes: Reports change in vision ENT: Reports headache(s), Denies nasal congestion and Denies sore throat Cardiovascular: Cardiovascular: Denies chest pain, Denies rapid heart rate, Denies leg edema, Denies lightheadedness and Denies dyspnea Respiratory: Respiratory: Denies chest congestion, Denies cough, Denies dyspnea and Denies wheezing Gastrointestinal: Gastrointestinal: Denies abdominal pain, Denies diarrhea, Denies nausea and Denies vomiting Genitourinary: Genitourinary: Denies dysuria and Denies urinary urgency Musculoskeletal: Musculoskeletal: Denies back pain and Denies myalgias Integumentary/Breasts: Skin/Breast: Denies rash Neurologic: Reports as per HPI, Denies confusion and Reports headache(s) Psychiatric: Psychiatric: Denies confusion Endocrine: Endocrine: Denies fatigue Hematologic/Lymphatic: Hematologic/Lymphatic: Denies easy bleeding and Denies easy bruising Allergic/Immunologic: Allergic/Immunologic: Denies wheezing [facility] Medical History (Updated 01/29/25 @ 02:35 by Jocy Walton PA-C) Colitis Class 1 obesity HTN (hypertension) Functional capacity: independent ambulation Social History Smoked in Last 30 Days: No Use of substances other than those prescribed or required for medical reasons: No Advance Directives: Yes Advance Directives Information Provided: Yes Advance Directives on File: No Do you have a plan to hurt others: No Plan Narrative: No smoking, alcohol or drug use Meds Allergies Allergy/AdvReac Type Severity Reaction Status Date / Time No Known Allergies Allergy Verified 01/28/25 14:00 Active Medications: Current Medications Acetaminophen (Acetaminophen 325 Mg Tablet) 975 mg PO Q6H PRN PRN Reason: Pain, Mild 1-3,fever,headache Aspirin (Aspirin Enteric Coated 81 Mg Tablet.Dr) 81 mg PO DAILY [facility] Calcium Carbonate (Calcium Carbonate 750 Mg Tab.Chew) 750 mg PO Q4H PRN PRN Reason: Heartburn Enoxaparin Sodium (Enoxaparin Sodium 40 Mg/0.4 Ml Syringe) 40 mg SUBCUT Q24H ALFA Lactated Ringer's (Lr) 1,000 mls @ 999 mls/hr IV .Q1H1M [facility] Stop: 01/29/25 02:45 Lactated Ringer's (Lr) 1,000 mls @ 100 mls/hr IVCONT .Q10H [facility] Magnesium Hydroxide (Milk Of Magnesia 30 Ml Oral.Susp) 30 ml PO DAILY PRN PRN Reason: Constipation Magnesium Hydroxide (Milk Of Magnesia 30 Ml Oral.Susp) 30 ml PO DAILY PRN PRN Reason: Constipation Melatonin (Melatonin 3 Mg Tablet) 6 mg PO BEDTIME PRN PRN Reason: Insomnia Ondansetron HCl (Ondansetron Hcl 4 Mg/2 Ml Vial) 4 mg IVPUSH Q8H PRN PRN Reason: Nausea and Vomiting Oxycodone HCl (Oxycodone Hcl Immed Release 5 Mg Tablet) 5 mg PO Q6H PRN PRN Reason: Pain, Severe (Pain Scale 7-10) Sodium Chloride (0.9 % Sodium Chloride Flush 3 Ml Syringe) 3 ml IVFLUSH QSHIFT [facility] Physical Exam Vital Signs and Narrative: Vital Signs: Last Vital Signs Temp 97.6 F 01/28/25 23:09 Pulse 90 01/28/25 23:09 Resp 17 01/28/25 23:09 BP 127/85 01/28/25 23:09 Pulse Ox 98 01/28/25 23:09 O2 Del Method Room Air 01/28/25 23:09 BMI result Body Mass Index 32.6 General: AOx3, no acute distress Resp: CTA bilaterally CVS: S1, S2, RRR GI: +BS, NT, no distention Skin: Warm, dry Neuro: Cranial nerves II-XII grossly intact bilaterally. Motor grossly intact bilaterally. 5/5 strength bilateral upper and lower extremities. Sensation intact throughout. Reports paresthesias still in fingertips and left side of mouth. Extremities: No lower extremity edema Psych: Appropriate affect Const: General: No confusion Orientation/consciousness: No confusion Neuro: General: No confusion Results Labs 01/28/25 15:18 01/28/25 15:17 Labs: Laboratory Results - last 24 hr 01/28/25 01/28/25 01/28/25 15:17 15:18 20:16 MCV 84.1 MCH 28.3 MCHC 33.6 RDW 14.4 Plt Count 282 MPV 9.9 Immature Gran % (Auto) 0.2 Neut % (Auto) 74.9 H Lymph % (Auto) 17.0 L [place] % (Auto) 7.6 Eos % (Auto) 0.1 Baso % (Auto) 0.2 Lymph # (Auto) 1.4 [place] # (Auto) 0.6 Eos # (Auto) 0.0 Baso # (Auto) 0.0 Abs Immat Gran (auto) 0.02 Absolute Neuts (auto) 6.3 Absolute Nucleated RBC 0.000 Nucleated RBC % (auto) 0.0 PT 11.9 INR 1.0 APTT 26.8 Anion Gap 13 Estim Creat Clear Calc 105.2 Estimated GFR > 60 Random Glucose 105 Calcium 9.6 Total Bilirubin 0.6 AST 38 H ALT 38 Alkaline Phosphatase 76 B-Natriuretic Peptide < 10 Total Protein 8.4 H Albumin 4.5 Urine Color Yellow Urine Appearance Clear Urine pH 8.0 Ur Specific [place] 1.015 Urine Protein Negative Urine Glucose (UA) Negative Urine Ketones Negative Urine Blood Negative Urine Nitrite Negative Ur Leukocyte Esterase Negative Urine RBC 0-2 Urine WBC 0-5 Ur Squamous Epith Cells 0-2 Urine Bacteria None Seen Hyaline Casts 0-2 Assessment and Plan (1) Stroke: Qualifiers: Laterality of affected vessel: right Status: Acute (2) Left hand paresthesia: Status: Acute (3) Left leg paresthesias: Status: Acute (4) Facial paresthesia: Status: Acute (5) Class 1 obesity: Status: Acute Plan Patient is a 59-year-old male with a past medical history significant for hypertension, colitis and class 1 obesity, who presented to the ED due to numbness around the left side of his mouth, fingertips and left lower extremity all beginning around 12 30 yesterday. Stroke with left facial, upper extremity and lower extremity paresthesias - no leukocytosis or evidence of infection, vital signs stable - head CT with possible subacute right occipital infarct - CTA head and neck pending, was initially deferred as patient had CTA chest to rule out AAA which was negative - UA negative - given aspirin 162 mg in ED, continue 81 mg daily - EKG with sinus tachycardia - MRI in a.m. - echo with bubble study - neurology consult - spoke with Dr Sams who states no intervention at this time and no need for transfer - lipid panel - will need to start high-intensity statin, appreciate Neurology input - LR 1L x1 followed by 100ml/hr due to repeat IV contrast - passed bedside swallow - PT/OT eval - monitor on tele - neurocheck Q2H Hypertension - continue home meds Class 1 obesity - BMI 32.6 - weight loss encouraged Med rec pending Full code VTE prophylaxis: Lovenox Patient with left facial, upper extremity and lower extremity paresthesias with imaging consistent with possible right occipital infarct, requiring admission for at least 2 midnights stay for further evaluation and monitoring. Quality Stroke Does the patient have a stroke diagnosis?: Yes Reason for No Anti-thrombotic by Day Two: Drug treatment not indicated VTE Prior VTE?: No VTE Risk Level:: Medical - moderate - high VTE Device Contraindication: Treatment Not Indicated VTE Drug Contraindication: N/A - Med Ordered
[2025-01-29] MEDS: Lactated Ringers 1,000 ML 100 ML IVCONT ×2 (02:03→13:51)
[2025-01-29] MEDS: Lactated Ringers 1,000 ML 999 ML IV (02:03)
--- NOTE | 2025-01-29 08:41 | PHA.MEDREC ---
Pharmacy Consult ? Medication Reconciliation Pharmacy has completed the medication reconciliation.
[2025-01-29] MEDS: Aspirin Enteric Coated 81 MG TABLET.DR PO (08:45)
[2025-01-29] MEDS: 0.9 % Sodium Chloride Flush 3 ML SYRINGE IVFLUSH ×2 (08:45→20:00)
[2025-01-29 09:04] LABS: Hematocrit 45.4 % (42.0-52.0); Hemoglobin 14.9 g/dl (14.0-18.0); Mean Corpuscular HGB Conc 32.8 g/dl (31.0-36.0); Mean Corpuscular Hemoglobin 28.3 pg (27.0-33.0); Mean Corpuscular Volume 86.1 fL (80.0-98.0); NRBC Abs Auto 0.000 X10*3/uL (0.0-0.012); NRBC Pct Auto 0.0 /100WBC (0.0-0.2); Platelet Count 176 X10*3/uL (160-400); Red Blood Count 5.27 X10*6/uL (4.60-5.80); White Blood Count 10.1 X10*3/uL (4.8-10.8)
[2025-01-29 09:19] LABS: Anion Gap 12 (12-20); Blood Urea Nitrogen 7 mg/dL (9-16); Calcium 9.7 mg/dL (8.4-10.2); Carbon Dioxide 26 mmol/L (22-29); Chloride 104 mmol/L (96-108); Creatinine Clr Calc Pharmacy 128.2; Estimated Glomerular Filt Rate > 60; Potassium 4.1 mmol/L (3.3-5.1); Sodium 138 mmol/L (135-145)
--- NOTE | 2025-01-29 09:40 | P.PNIM_ITS ---
Subjective Subjective Date of Service: 01/29/25 Interval History: still with left sided weakness and numbenss Physical Exam 2 Exam: Exam: 4+/5 left sided weakness Vital Signs: Vital Signs: Last Vital Signs Temp 97.1 F 01/29/25 07:58 Pulse 65 01/29/25 07:58 Resp 18 01/29/25 07:58 BP 114/64 01/29/25 07:58 Pulse Ox 96 01/29/25 07:58 O2 Del Method Room Air 01/29/25 07:58 BMI result Body Mass Index 32.9 Objective Data Active Medications Acetaminophen (Acetaminophen 325 Mg Tablet) 975 mg PO Q6H PRN PRN Reason: Pain, Mild 1-3,fever,headache Aspirin (Aspirin Enteric Coated 81 Mg Tablet.) 81 mg PO DAILY [facility] Last Admin: 01/29/25 08:45 Dose: 81 mg Documented By: AKHIL Atorvastatin Calcium (Atorvastatin Calcium 80 Mg Tablet) 80 mg PO BEDTIME [facility] Calcium Carbonate (Calcium Carbonate 750 Mg Tab.Chew) 750 mg PO Q4H PRN PRN Reason: Heartburn Enoxaparin Sodium (Enoxaparin Sodium 40 Mg/0.4 Ml Syringe) 40 mg SUBCUT Q24H [facility] Last Admin: 01/29/25 08:44 Dose: 40 mg Documented By: AKHIL Lactated Ringer's (Lr) 1,000 mls @ 100 mls/hr IVCONT .Q10H [facility] Last Admin: 01/29/25 02:03 Dose: 100 mls/hr Documented By: BRIDGET Magnesium Hydroxide (Milk Of Magnesia 30 Ml Oral.Susp) 30 ml PO DAILY PRN PRN Reason: Constipation Magnesium Hydroxide (Milk Of Magnesia 30 Ml Oral.Susp) 30 ml PO DAILY PRN PRN Reason: Constipation Melatonin (Melatonin 3 Mg Tablet) 6 mg PO BEDTIME PRN PRN Reason: Insomnia Ondansetron HCl (Ondansetron Hcl 4 Mg/2 Ml Vial) 4 mg IVPUSH Q8H PRN PRN Reason: Nausea and Vomiting Oxycodone HCl (Oxycodone Hcl Immed Release 5 Mg Tablet) 5 mg PO Q6H PRN PRN Reason: Pain, Severe (Pain Scale 7-10) Sodium Chloride (0.9 % Sodium Chloride Flush 3 Ml Syringe) 3 ml IVFLUSH QSHIFT [facility] Last Admin: 01/29/25 08:45 Dose: 3 ml Documented By: AKHIL Labs 01/29/25 08:42 01/29/25 08:42 Labs: Laboratory Results - last 24 hr 01/28/25 01/28/25 01/28/25 15:17 15:18 20:16 MCV 84.1 MCH 28.3 MCHC 33.6 RDW 14.4 Plt Count 282 MPV 9.9 Immature Gran % (Auto) 0.2 Neut % (Auto) 74.9 H Lymph % (Auto) 17.0 L [place] % (Auto) 7.6 Eos % (Auto) 0.1 Baso % (Auto) 0.2 Lymph # (Auto) 1.4 [place] # (Auto) 0.6 Eos # (Auto) 0.0 Baso # (Auto) 0.0 Abs Immat Gran (auto) 0.02 Absolute Neuts (auto) 6.3 Absolute Nucleated RBC 0.000 Nucleated RBC % (auto) 0.0 PT 11.9 INR 1.0 APTT 26.8 Anion Gap 13 Estim Creat Clear Calc 105.2 Estimated GFR > 60 Random Glucose 105 Calcium 9.6 Total Bilirubin 0.6 AST 38 H ALT 38 Alkaline Phosphatase 76 B-Natriuretic Peptide < 10 Total Protein 8.4 H Albumin 4.5 Urine Color Yellow Urine Appearance Clear Urine pH 8.0 Ur Specific [place] 1.015 Urine Protein Negative Urine Glucose (UA) Negative Urine Ketones Negative Urine Blood Negative Urine Nitrite Negative Ur Leukocyte Esterase Negative Urine RBC 0-2 Urine WBC 0-5 Ur Squamous Epith Cells 0-2 Urine Bacteria None Seen Hyaline Casts 0-2 01/29/25 08:42 MCV 86.1 MCH 28.3 MCHC 32.8 RDW 14.8 Plt Count 176 D MPV 11.2 Immature Gran % (Auto) Neut % (Auto) Lymph % (Auto) [place] % (Auto) Eos % (Auto) Baso % (Auto) Lymph # (Auto) [place] # (Auto) Eos # (Auto) Baso # (Auto) Abs Immat Gran (auto) Absolute Neuts (auto) Absolute Nucleated RBC 0.000 Nucleated RBC % (auto) 0.0 PT INR APTT Anion Gap 12 Estim Creat Clear Calc 128.2 Estimated GFR > 60 Random Glucose 95 Calcium 9.7 Total Bilirubin AST ALT Alkaline Phosphatase B-Natriuretic Peptide Total Protein Albumin Urine Color Urine Appearance Urine pH Ur Specific [place] Urine Protein Urine Glucose (UA) Urine Ketones Urine Blood Urine Nitrite Ur Leukocyte Esterase Urine RBC Urine WBC Ur Squamous Epith Cells Urine Bacteria Hyaline Casts Assessment and Plan (1) Stroke: Status: Acute Plan 59M PMH htn presented with left sided parasthesias and weakness acute right occipital infarct due to P2 occlusion contine asa, statin pt/ot echo neuro eval htn permissive htn dvt prophylaxis- lovenox full code reason for continued hospitalization:neuro eval Quality Stroke Does the patient have a stroke diagnosis?: Yes Reason for No Anti-thrombotic by Day Two: Drug treatment not indicated VTE Prior VTE?: No VTE Risk Level:: Medical - moderate - high VTE Device Contraindication: Treatment Not Indicated VTE Drug Contraindication: N/A - Med Ordered
[2025-01-29 09:49] LABS: Vitamin B12 692 pg/mL (200-900)
--- NOTE | 2025-01-29 12:20 | MHC.CM.PN ---
Pt self-care, lives at home with his mother and his brother. Pt states he completed a HCP at his PCP's office, copy requested. Pt has a cane and a walker at home, but doesn't use it. Pts brother will transport him home at discharge if going home, vs BLS if pt needs rehab pending PT eval. PCP: Dr. Antonio Leung
[2025-01-30] VITALS (8 sets, daily range): BP systolic 141–178; BP diastolic 77–99; PULSE 63–84; RESP 16–18; TEMP 36.3–36.8; O2SAT 95–96
[2025-01-30] MEDS: Lactated Ringers 1,000 ML 100 ML IVCONT ×3 (00:05→17:21)
--- NOTE | 2025-01-30 04:13 | PC.NURSE ---
Patient attempting to get oob a couple of times this evening with reminders to use his call dumas before attempting get up. Camera in room and bed alarm on for patients safety. Patient requesting a walker because he wanted to stretch his legs and stand. Patient ambulating with a walker assisted by this RN but lack of coordination and unsteady gait d/t left sided and most apparent left leg weakness. Heavy assist. Patient wanted to sit in recliner. RN was holding back of patients eunice standing in the back of him and on his right as patient was backing up to chair. Patient misjudged left arm of chair and started falling to his left. RN grabbed patient and attempted to stop him from falling but just softened his fall as both patient and RN dropped to the ground tripping over walker. 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 Patient fell on his left hip. Patient reported no pain and RN assessed no redness or swelling. RN assisted patient up to chair. RN assessed vitals which b.p was elevated. RN made appropriate staff aware and MD ordered x-ray of bi lateral hips which were administered. Patient went down in a wheelchair and assisted back to bed. Fall protocol followed.
[2025-01-30 07:23] LABS: Hematocrit 44.8 % (42.0-52.0); Hemoglobin 14.6 g/dl (14.0-18.0); Mean Corpuscular HGB Conc 32.6 g/dl (31.0-36.0); Mean Corpuscular Hemoglobin 27.7 pg (27.0-33.0); Mean Corpuscular Volume 84.8 fL (80.0-98.0); NRBC Abs Auto 0.000 X10*3/uL (0.0-0.012); NRBC Pct Auto 0.0 /100WBC (0.0-0.2); Platelet Count 276 X10*3/uL (160-400); Red Blood Count 5.28 X10*6/uL (4.60-5.80); White Blood Count 9.3 X10*3/uL (4.8-10.8)
[2025-01-30 07:40] LABS: Anion Gap 12 (12-20); Blood Urea Nitrogen 7 mg/dL (9-16); Calcium 9.4 mg/dL (8.4-10.2); Carbon Dioxide 24 mmol/L (22-29); Chloride 106 mmol/L (96-108); Cholesterol 228 mg/dL (<200); Creatinine Clr Calc Pharmacy 122.4; Estimated Glomerular Filt Rate > 60; HDL Cholesterol 45 mg/dL (>40); Potassium 3.8 mmol/L (3.3-5.1); Sodium 138 mmol/L (135-145); Triglycerides 81 mg/dL (<150)
[2025-01-30 08:01] LABS: Thyroid Stimulating Hormone 2.79 uIU/mL (0.32-4.0)
[2025-01-30] MEDS: Aspirin Enteric Coated 81 MG TABLET.DR PO (09:31)
[2025-01-30] MEDS: 0.9 % Sodium Chloride Flush 3 ML SYRINGE IVFLUSH ×2 (09:34→16:20)
--- NOTE | 2025-01-30 09:57 | HO.PM.IMPN ---
Subjective Subjective Date of Service: 01/30/25 Interval History: fell last night, no trauma, still with left sided deficits Physical Exam Exam: Exam: 4+/5 left sided weakness Vital Signs: Vital Signs: Last Vital Signs Temp 97.3 F 01/30/25 08:00 Pulse 63 01/30/25 08:00 Resp 18 01/30/25 08:00 BP 150/90 H 01/30/25 07:46 Pulse Ox 95 01/30/25 08:00 O2 Del Method Room Air 01/30/25 08:00 BMI result Body Mass Index 32.9 Objective Data Active Medications Acetaminophen (Acetaminophen 325 Mg Tablet) 975 mg PO Q6H PRN PRN Reason: Pain, Mild 1-3,fever,headache Aspirin (Aspirin Enteric Coated 81 Mg Tablet.) 81 mg PO DAILY [facility] Last Admin: 01/30/25 09:31 Dose: 81 mg Documented By: AKHIL Atorvastatin Calcium (Atorvastatin Calcium 80 Mg Tablet) 80 mg PO BEDTIME [facility] Last Admin: 01/29/25 19:59 Dose: 80 mg Documented By: MADIE Calcium Carbonate (Calcium Carbonate 750 Mg Tab.Chew) 750 mg PO Q4H PRN PRN Reason: Heartburn Enoxaparin Sodium (Enoxaparin Sodium 40 Mg/0.4 Ml Syringe) 40 mg SUBCUT Q24H [facility] Last Admin: 01/30/25 09:32 Dose: 40 mg Documented By: AKHIL Lactated Ringer's (Lr) 1,000 mls @ 100 mls/hr IVCONT .Q10H [facility] Last Admin: 01/30/25 09:32 Dose: 100 mls/hr Documented By: AKHIL Magnesium Hydroxide (Milk Of Magnesia 30 Ml Oral.Susp) 30 ml PO DAILY PRN PRN Reason: Constipation Magnesium Hydroxide (Milk Of Magnesia 30 Ml Oral.Susp) 30 ml PO DAILY PRN PRN Reason: Constipation Melatonin (Melatonin 3 Mg Tablet) 6 mg PO BEDTIME PRN PRN Reason: Insomnia Ondansetron HCl (Ondansetron Hcl 4 Mg/2 Ml Vial) 4 mg IVPUSH Q8H PRN PRN Reason: Nausea and Vomiting Last Admin: 01/30/25 09:36 Dose: 4 mg Documented By: AKHIL Oxycodone HCl (Oxycodone Hcl Immed Release 5 Mg Tablet) 5 mg PO Q6H PRN PRN Reason: Pain, Severe (Pain Scale 7-10) Sodium Chloride (0.9 % Sodium Chloride Flush 3 Ml Syringe) 3 ml IVFLUSH QSHIFT [facility] Last Admin: 01/30/25 09:34 Dose: 3 ml Documented By: AKHIL Labs 01/30/25 06:43 01/30/25 06:43 Labs: Laboratory Results - last 24 hr 01/30/25 06:43 MCV 84.8 MCH 27.7 MCHC 32.6 RDW 14.6 Plt Count 276 D MPV 10.3 Absolute Nucleated RBC 0.000 Nucleated RBC % (auto) 0.0 Anion Gap 12 Estim Creat Clear Calc 122.4 Estimated GFR > 60 Random Glucose 95 Calcium 9.4 Triglycerides 81 Cholesterol 228 H LDL Cholesterol, Calc 167 H HDL Cholesterol 45 TSH 2.79 Assessment and Plan (1) Stroke: Status: Acute Plan 59M PMH htn presented with left sided parasthesias and weakness acute right temporal-occipital and right thalamic infarct due to P2 occlusion contine asa, statin pt/ot recommending acute rehab echo neuro eval htn will restart bp meds dvt prophylaxis- lovenox full code reason for continued hospitalization:neuro eval Quality Stroke Does the patient have a stroke diagnosis?: Yes Reason for No Anti-thrombotic by Day Two: Drug treatment not indicated VTE Prior VTE?: No VTE Risk Level:: Medical - moderate - high VTE Device Contraindication: Treatment Not Indicated VTE Drug Contraindication: N/A - Med Ordered
[2025-01-30] MEDS: lisinopriL 20 MG, hydroCHLOROthiazide 12.5 MG PO (10:50)
[2025-01-31] VITALS (9 sets, daily range): BP systolic 126–159; BP diastolic 78–93; PULSE 68–92; RESP 16–18; TEMP 35.6–36.6; O2SAT 95–99
[2025-01-31 06:27] LABS: Hematocrit 46.4 % (42.0-52.0); Hemoglobin 15.3 g/dl (14.0-18.0); Mean Corpuscular HGB Conc 33.0 g/dl (31.0-36.0); Mean Corpuscular Hemoglobin 27.9 pg (27.0-33.0); Mean Corpuscular Volume 84.7 fL (80.0-98.0); NRBC Abs Auto 0.000 X10*3/uL (0.0-0.012); NRBC Pct Auto 0.0 /100WBC (0.0-0.2); Platelet Count 283 X10*3/uL (160-400); Red Blood Count 5.48 X10*6/uL (4.60-5.80); White Blood Count 7.7 X10*3/uL (4.8-10.8)
[2025-01-31 06:46] LABS: Anion Gap 13 (12-20); Blood Urea Nitrogen 11 mg/dL (9-16); Calcium 9.5 mg/dL (8.4-10.2); Carbon Dioxide 26 mmol/L (22-29); Chloride 103 mmol/L (96-108); Creatinine Clr Calc Pharmacy 106.6; Estimated Glomerular Filt Rate > 60; Potassium 3.8 mmol/L (3.3-5.1); Sodium 138 mmol/L (135-145)
--- NOTE | 2025-01-31 07:00 | CA_ITS ---
Transthoracic Echocardiogram Patient (Last, First, Middle): Caesar Humphrey, Gender: Male Date of : 1965 Age: 59 Procedure Date: 01/31/2025 Procedure Type: Transthoracic Echocardiogram Location: [facility] Height: 187.96 cm Weight: 115.67 kg BSA: 2.41 m2 Heart Rate: bpm BP: 150 / 92 mmHg Field Map Editor: Referring MD: Jocy Walton PA-C Symptoms: CVA Study Quality: Adequate Conclusions: - Normal left ventricular cavity size. There is severely increased left ventricular wall thickness. The left ventricular systolic function is hyperdynamic. The visually estimated ejection fraction is >70%. - E/E prime ratio is <8, consistent with normal filling pressures. - Normal right ventricular cavity size and systolic function. - Inadequate bubble study-cannot comment about presence or absence of atrial shunting. Findings Left Ventricle Normal left ventricular cavity size. There is severely increased left ventricular wall thickness. The left ventricular systolic function is hyperdynamic. The visually estimated ejection fraction is >70%. There is no evidence of regional wall motion abnormalities. Abnormal diastolic function is noted. Spectral Doppler is indicative of an impaired relaxation filling pattern. E/E prime ratio is <8, consistent with normal filling pressures. Right Ventricle Normal right ventricular cavity size and systolic function. Atria The left atrium is normal in size. Inadequate bubble study-cannot comment about presence or absence of atrial shunting. The right atrium is normal in size. Aortic Valve Normal aortic valve structure and function. There is no aortic valve stenosis. There is no aortic valve regurgitation. Mitral Valve The mitral valve appears normal. There is no mitral valve regurgitation. There is no mitral valve stenosis. Pulmonic Valve The pulmonic valve is normal. There is no pulmonic valve regurgitation. Tricuspid Valve Likely normal tricuspid valve structure and function. Tricuspid regurgitation envelope is inadequate for calculation of right ventricular systolic pressure. Indeterminate right atrial pressure. Great Vessels There is mild dilatation of the ascending aorta measuring 3.50 cm. The visualized portions of the pulmonary artery and branches are normal. Venous The inferior vena cava was not well visualized. Pericardium/Pleural There is no evidence of pericardial effusion. Prior Study Comparison No prior study available for comparison. Measurements 2D Linear Measurements IVSd: 1.60 0.6-0.9/0.6-1.0 cm LVIDd: 3.81 3.9-5.3/4.2-5.9 cm LVIDd Index: 1.58 2.4-3.2/2.2-3.1 cm/m2 LVIDs: 2.47 2.0-3.6 cm LVPWd: 1.52 0.7-1.1 cm LA Diam: 3.50 2.7-3.8/3.0-4.0 cm LAIDs Index: 1.45 1.5-2.3 cm/m2 LV Mass: 288.61 67-162/88-224 g LV Mass Index: 119.75 43-95/49-115 g/m2 LVOT Diam: 2.00 3.0+(-)1.3 cm Mitral Valve MV Pk E: 0.46 MV PK A: 0.58 MV Decel Time: 232.00 E/A: 0.80 E'Lateral: 7.18 E'Medial: 4.13 E/E' Med: 11.20 E/E' Lat: 6.40 PHT: 68.00 MVA PHT: 3.24 Decel [place]: 2.00 Aortic Valve AoV Pk Cam: 1.26 AoV Mn Cam: 0.90 AoV VTI: 0.26 AoV Pk Grad: 6.00 Aov Mn Grad: 4.00 LISA Cont.VTI: 2.76 LVOT LVOT Pk Cam: 1.04 LVOT Mn Cam: 0.84 LVOT VTI: 0.23 LVOT Pk Grad: 4.00 LVOT Mn Grad: 3.00 LVOT Diam: 2.00 LVOT Area: 3.14 Diastolic Function MV Pk E: 0.46 MV Pk A: 0.58 E/A: 0.80 E'Medial: 4.13 E/E' Med: 11.20 E' Laterial: 7.18 E/E' Lat: 6.40 Right Ventricle TAPSE (mm): 18.00 TVS' Cam: 10.10 Tricuspid Valve TR Pk Cam: 1.54 TR Pk Grad: 9.00 Great Vessels Aorta Sinus of Valsalva: 3.50 2.0-3.5 cm Ao Asc: 3.50 2.1-3.4 cm Pulmonary Valve PV Pk Cam: 0.97 Peak PV Grad: 4.00 Updated in Other Vendor System with Status of Final Raymon Smith MD electronically signed on 02/01/2025 10:16:37 PM with status of Final
[2025-01-31] MEDS: Aspirin Enteric Coated 81 MG TABLET.DR PO (08:41)
[2025-01-31] MEDS: lisinopriL 20 MG, hydroCHLOROthiazide 12.5 MG PO (08:42)
[2025-01-31] MEDS: 0.9 % Sodium Chloride Flush 3 ML SYRINGE IVFLUSH ×3 (08:43→19:41)
--- NOTE | 2025-01-31 09:17 | HO.PM.IMPN ---
Subjective Subjective Date of Service: 01/31/25 Interval History: still with left sided deficits Physical Exam Exam: Exam: 4+/5 left sided weakness Vital Signs: Vital Signs: Last Vital Signs Temp 97.4 F 01/31/25 08:00 Pulse 68 01/31/25 08:00 Resp 16 01/31/25 08:00 BP 132/92 H 01/31/25 08:00 Pulse Ox 99 01/31/25 08:00 O2 Del Method Room Air 01/31/25 08:00 BMI result Body Mass Index 32.9 Objective Data Active Medications Acetaminophen (Acetaminophen 325 Mg Tablet) 975 mg PO Q6H PRN PRN Reason: Pain, Mild 1-3,fever,headache Last Admin: 01/30/25 15:02 Dose: 975 mg Documented By: AKHIL Aspirin (Aspirin Enteric Coated 81 Mg Tablet.) 81 mg PO DAILY [facility] Last Admin: 01/31/25 08:41 Dose: 81 mg Documented By: RIVERA Atorvastatin Calcium (Atorvastatin Calcium 80 Mg Tablet) 80 mg PO BEDTIME [facility] Last Admin: 01/30/25 19:30 Dose: 80 mg Documented By: MAGNUS Calcium Carbonate (Calcium Carbonate 750 Mg Tab.Chew) 750 mg PO Q4H PRN PRN Reason: Heartburn Lisinopril 20 mg/ (Hydrochlorothiazide 12.5 mg) 0 mg PO DAILY [facility] Last Admin: 01/31/25 08:42 Dose: 2 tablet Documented By: RIVERA Enoxaparin Sodium (Enoxaparin Sodium 40 Mg/0.4 Ml Syringe) 40 mg SUBCUT Q24H [facility] Last Admin: 01/31/25 08:43 Dose: 40 mg Documented By: RIVERA Magnesium Hydroxide (Milk Of Magnesia 30 Ml Oral.Susp) 30 ml PO DAILY PRN PRN Reason: Constipation Magnesium Hydroxide (Milk Of Magnesia 30 Ml Oral.Susp) 30 ml PO DAILY PRN PRN Reason: Constipation Melatonin (Melatonin 3 Mg Tablet) 6 mg PO BEDTIME PRN PRN Reason: Insomnia Ondansetron HCl (Ondansetron Hcl 4 Mg/2 Ml Vial) 4 mg IVPUSH Q8H PRN PRN Reason: Nausea and Vomiting Last Admin: 01/30/25 09:36 Dose: 4 mg Documented By: AKHIL Oxycodone HCl (Oxycodone Hcl Immed Release 5 Mg Tablet) 5 mg PO Q6H PRN PRN Reason: Pain, Severe (Pain Scale 7-10) Sodium Chloride (0.9 % Sodium Chloride Flush 3 Ml Syringe) 3 ml IVFLUSH QSHIFT [facility] Last Admin: 01/31/25 08:43 Dose: 3 ml Documented By: RIVERA Labs 01/31/25 06:10 01/31/25 06:10 Labs: Laboratory Results - last 24 hr 01/31/25 06:10 MCV 84.7 MCH 27.9 MCHC 33.0 RDW 14.3 Plt Count 283 MPV 9.9 Absolute Nucleated RBC 0.000 Nucleated RBC % (auto) 0.0 Anion Gap 13 Estim Creat Clear Calc 106.6 Estimated GFR > 60 Random Glucose 100 Calcium 9.5 Assessment and Plan (1) Stroke: Status: Acute Plan 59M PMH htn presented with left sided parasthesias and weakness acute right temporal-occipital and right thalamic infarct due to P2 occlusion contine asa, statin pt/ot recommending acute rehab echo neuro eval htn will restart bp meds dvt prophylaxis- lovenox full code reason for continued hospitalization:neuro eval Quality Stroke Does the patient have a stroke diagnosis?: Yes Reason for No Anti-thrombotic by Day Two: Drug treatment not indicated VTE Prior VTE?: No VTE Risk Level:: Medical - moderate - high VTE Device Contraindication: Treatment Not Indicated VTE Drug Contraindication: N/A - Med Ordered
--- NOTE | 2025-01-31 09:19 | P.DS_ITS ---
DS: Providers Provider Date of Service: 02/01/25 Date of admission: 01/29/25 01:09 Date of discharge: 02/01/25 Primary care physician: Antonio Leung MD Consults: 01/29/25 01:10 Consult to Neurology Routine Consulting Provider: [facility] Reason for consultation: ?CVA DS: Diagnosis Discharge Diagnosis (1) Stroke: Status: Acute DS: Summary Hospital Course Hospital Course: from initial hpi: 59-year-old male with a past medical history significant for hypertension, colitis and class 1 obesity, who presented to the ED due to numbness around the left side of his mouth, fingertips and left lower extremity all beginning around 12 30 yesterday. Patient does not denies any dysarthria or difficulties with his speech. He reports some mild balance issues but no weakness at all in the extremities or face. No difficulty swallowing. He does report an occipital headache and mild left eye blurriness, right side okay. He denies any URI symptoms, fever, chills, nausea, vomiting, abdominal pain or urinary symptoms. The patient is a poor historian. His speech is stuttered but he reports that his speech is at baseline. hospital course: Patient was admitted for acute right temporal occipital and right thalamic infarct due to P2 occlusion. Was treated with aspirin, plavix, statin. Was seen by physical therapy recommended acute rehab. No events on telemetry. For hypertension was initially given permissive hypertension and then restarted on lisinopril and hydrochlorothiazide. there was concern for possible demyelinating disease on MRI, neuro recommended outpatient follow up. Time Attestation Discharge Coordination Time (in mins): 37 Quality: Safe Use of Opioids Does Pt have an Active Cancer Diagnosis on the Problem List?: No Quality: Stroke Does the patient have a stroke diagnosis?: Yes Reason for No Anti-thrombotic at DC: N/A - Med Ordered Reason for No Anticoagulant at DC: Drug treatment not indicated Reason Not Initiating IV-Tpa: Drug treatment not indicated Reason for No Anti-thrombotic by Day Two: N/A - Med Ordered Reason for No Statin at DC: N/A - Med Ordered Physical Exam Exam: Exam: 4/5 left sided weakness Vital Signs: Vital Signs: Last Vital Signs Temp 97.4 F 01/31/25 08:00 Pulse 68 01/31/25 08:00 Resp 16 01/31/25 08:00 BP 132/92 H 01/31/25 08:00 Pulse Ox 99 01/31/25 08:00 O2 Del Method Room Air 01/31/25 08:00 BMI result Body Mass Index 32.9 DS: Data Data Completed and Pending Labs on day of discharge: Laboratory Results - last 24 hr 01/31/25 06:10 WBC 7.7 RBC 5.48 Hgb 15.3 Hct 46.4 MCV 84.7 MCH 27.9 MCHC 33.0 RDW 14.3 Plt Count 283 MPV 9.9 Absolute Nucleated RBC 0.000 Nucleated RBC % (auto) 0.0 Sodium 138 Potassium 3.8 Chloride 103 Carbon Dioxide 26 Anion Gap 13 BUN 11 Creatinine 1.01 Estim Creat Clear Calc 106.6 Estimated GFR > 60 Random Glucose 100 Calcium 9.5 Discharge Plan Discharge Anticipated Discharge Date/Time: 01/31/25 09:17 Patient Disposition: Xfer Inpatient Rehab Fac Discharge Diagnosis: cva Referrals: [facility] [Outside] - 1 Week Antonio Leung MD [Primary Care Provider, Medical] - 1 Week Discharge Medications: New atorvastatin 80 mg Tablet 80 mg PO BEDTIME Qty: 0 0RF aspirin 81 mg Tablet,Delayed Release (Dr/Ec) 81 mg PO DAILY Qty: 0 0RF clopidogrel [Plavix] 75 mg tablet 75 mg PO DAILY Qty: 90 0RF Continued lisinopril-hydrochlorothiazide 20-12.5 mg tablet 1 tab PO DAILY Discharge Orders: Discharge Order (Routine); Ordered 02/01/25 Ordered By: Mateus Hong Diet: Advance to usual diet Activity on Discharge: As tolerated Stand Alone Forms: Patient Portal Discharge page Print Language: Citizen Of [place] Care Plan Goals: recovery, prevent cva Health Concerns: cva Plan of Treatment: rehab asa, plavix, statin follow up neuro to rule out MS Assessment: see above
--- NOTE | 2025-01-31 11:14 | MHC.CM.PN ---
Addendum entered by Liat Medel 01/31/25 16:06: [facility] has accepted patient, they are initiating insurance authorization. Addendum entered by Liat Medel 01/31/25 14:54: This CM met with pt to discuss acute rehab options, pt is in agreement and states [facility] would be his first choice, awaiting bed offer. Original Note: EMR reviewed and per MD rounds, pt is medically cleared for discharge pending acute rehab placement, awaiting neuro consult. Referral sent to acute rehabs via [facility] and [facility] interested/following.
--- NOTE | 2025-01-31 11:56 | P.CNNE_ITS ---
History of Present Illness Data of Consult Service Date: 01/31/25 Primary Care Provider: Antonio Leung MD [facility] Reason for consult: Stroke 59 years old man with hypertension came to hospital with new onset of left-sided numbness and weakness and was diagnosed with a stroke and this consultation was requested. There was no complaint of any chest pain shortness of breath headache or any recent trauma. 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 Review of Systems 2 Review of Systems: No recent cold or flu-like illness PMFSH Past Medical History Medical History (Updated 01/31/25 @ 11:58 by Reynaldo Sams MD) Colitis Class 1 obesity HTN (hypertension) Social History Social History Household Members: Family [facility] Do you presently have visiting nurse or other home services: No Patient Tobacco Use Status: Never used Tobacco Advance Directives Date on File: 01/29/25 service: No Meds Allergies Allergy/AdvReac Type Severity Reaction Status Date / Time No Known Allergies Allergy Verified 01/28/25 14:00 Active Medications: Current Medications Acetaminophen (Acetaminophen 325 Mg Tablet) 975 mg PO Q6H PRN PRN Reason: Pain, Mild 1-3,fever,headache Last Admin: 01/30/25 15:02 Dose: 975 mg Aspirin (Aspirin Enteric Coated 81 Mg Tablet.Dr) 81 mg PO DAILY [facility] Last Admin: 01/31/25 08:41 Dose: 81 mg Atorvastatin Calcium (Atorvastatin Calcium 80 Mg Tablet) 80 mg PO BEDTIME [facility] Last Admin: 01/30/25 19:30 Dose: 80 mg Calcium Carbonate (Calcium Carbonate 750 Mg Tab.Chew) 750 mg PO Q4H PRN PRN Reason: Heartburn Lisinopril 20 mg/ (Hydrochlorothiazide 12.5 mg) 0 mg PO DAILY [facility] Last Admin: 01/31/25 08:42 Dose: 2 tablet Enoxaparin Sodium (Enoxaparin Sodium 40 Mg/0.4 Ml Syringe) 40 mg SUBCUT Q24H [facility] Last Admin: 01/31/25 08:43 Dose: 40 mg Magnesium Hydroxide (Milk Of Magnesia 30 Ml Oral.Susp) 30 ml PO DAILY PRN PRN Reason: Constipation Magnesium Hydroxide (Milk Of Magnesia 30 Ml Oral.Susp) 30 ml PO DAILY PRN PRN Reason: Constipation Melatonin (Melatonin 3 Mg Tablet) 6 mg PO BEDTIME PRN PRN Reason: Insomnia Ondansetron HCl (Ondansetron Hcl 4 Mg/2 Ml Vial) 4 mg IVPUSH Q8H PRN PRN Reason: Nausea and Vomiting Last Admin: 01/30/25 09:36 Dose: 4 mg Oxycodone HCl (Oxycodone Hcl Immed Release 5 Mg Tablet) 5 mg PO Q6H PRN PRN Reason: Pain, Severe (Pain Scale 7-10) Sodium Chloride (0.9 % Sodium Chloride Flush 3 Ml Syringe) 3 ml IVFLUSH QSHIFT [facility] Last Admin: 01/31/25 08:43 Dose: 3 ml Home Medications ?Medication ?Instructions ?Recorded ?Confirmed ?Last Taken ?Type lisinopril 20 1 tab PO DAILY 01/29/2501/11 Unknown History mg-hydrochlorothiazide 12.5 mg tablet Physical Exam 2 Vital Signs: Vital Signs: Last Vital Signs Temp 97.4 F 01/31/25 08:00 Pulse 68 01/31/25 08:00 Resp 16 01/31/25 08:00 BP 132/92 H 01/31/25 08:00 Pulse Ox 99 01/31/25 08:00 O2 Del Method Room Air 01/31/25 08:00 BMI result Body Mass Index 32.9 Neuro: Other: He is alert and awake with normal spontaneity of speech fluency comprehension and somewhat flat affect. There is mild left-sided facial weakness and mild left pronator drift. Left visual field slightly affected. Deep tendon reflexes are absent. Speech is normal. Results Labs 01/31/25 06:10 01/31/25 06:10 Labs: Short CBC 01/31/25 Range/Units 06:10 WBC 7.7 (4.8-10.8) X10*3/uL Hgb 15.3 (14.0-18.0) g/dl Hct 46.4 (42.0-52.0) % Plt Count 283 (160-400) X10*3/uL BMP 01/31/25 06:10 Sodium 138 Potassium 3.8 Chloride 103 Carbon Dioxide 26 BUN 11 Creatinine 1.01 Calcium 9.5 MRI of brain revealed a large right posterior cerebral artery area ischemic infarct. Also noted were bilateral deep white matter changes suggestive of demyelinating disease. CTA revealed right P2 occlusion. Assessment and Plan (1) Stroke: Qualifiers: Laterality of affected vessel: right CVA mechanism: embolism P recerebral and cerebral artery: posterior cerebral artery Qualified Code(s): I 63.431 - Cerebral infarction due to embolism of right posterior cerebral artery Status: Acute 59 years old man with relatively large right posterior cerebral artery embolic looking ischemic infarct of brain, probably from cardiac source of embolism. Underneath, his brain MRI also revealed significant changes suggestive of chronic demyelinating disease. For now, appropriate cardiac testing is recommended to rule out cardiac source of embolism, dual anti-platelet therapy aspirin 81 mg +clopidogrel 75 mg daily, and rehab. As far as underlying demyelinating type lesions are concerned, this issue can be addressed as an outpatient. Procedures Date of Service Date of Service: 01/31/25
[2025-01-31] MEDS: Milk of Magnesia 30 ML ORAL.SUSP PO (16:02)
[2025-02-01 03:23] VITALS: BP 132/83; PULSE 94; RESP 16; TEMP 35.9; O2SAT 96
[2025-02-01 06:00] VITALS: BMI 32.9
[2025-02-01 07:26] VITALS: BP 139/94; PULSE 74; RESP 16; TEMP 36.6; O2SAT 96
[2025-02-01] MEDS: lisinopriL 20 MG, hydroCHLOROthiazide 12.5 MG PO (08:26)
[2025-02-01] MEDS: 0.9 % Sodium Chloride Flush 3 ML SYRINGE IVFLUSH (08:27)
[2025-02-01] MEDS: Aspirin Enteric Coated 81 MG TABLET.DR PO (08:27)
[2025-02-01 09:16] VITALS: BP 139/94; PULSE 74; O2SAT 96
--- NOTE | 2025-02-01 09:36 | MHC.CM.PN ---
Addendum entered by Liat Moseleyerland 02/01/25 15:00: This CM called [facility] to book pts ride to [facility], they have accepted to transport the pt and will be here at 4pm. Pt and his family were updated. Addendum entered by Liat Medel 02/01/25 14:19: Per Ana nurse from [facility], pts ambulance is covered from [facility] to [facility]. Per Ana if there are any further questions from the ambulance company, they can call Provider services at . Per Srinivas at [facility], he called [facility] at provider services and spoke to Ernestina ref #[id number] and she stated patient is only covered emergency ambulance to closest facility not non-emergent transports. This CM explained to Ana that the provider services told the ambulance company that the ride wouldn't be covered. Per Ana from [facility], she suggested we use a different ambulance provider if [facility] wont accept the verbal ok from them. Per Ana, the ambulance should submit the claim, and not request money up front for the ride. Addendum entered by Liat Moseleyerland 02/01/25 12:29: This CM placed call to [facility] CM team at [phone], voicemail left, awaiting return call. Addendum entered by Liat [place]etop 02/01/25 12:17: This CM informed by [facility] that the pts insurance will not cover his ambulance ride from [facility] to [facility], per [facility] the cost up front would be high $300's. This CM met with pt to discuss, pt states he cannot afford the ambulance bill up front. Original Note: Insurance auth obtained for pt to go to acute rehab at [facility] today, he will transport there via [facility], pt aware and in agreement with discharge plan.
[2025-02-01 11:13] VITALS: BP 141/94; PULSE 96; RESP 20; TEMP 36.4; O2SAT 98
--- NOTE | 2025-02-01 12:18 | P.PNIM_ITS ---
Subjective Subjective Date of Service: 02/01/25 Interval History: still with left sided deficits Physical Exam 2 Vital Signs: Vital Signs: Last Vital Signs Temp 97.6 F 02/01/25 11:13 Pulse 96 02/01/25 11:13 Resp 20 02/01/25 11:13 BP 141/94 H 02/01/25 11:13 Pulse Ox 98 02/01/25 11:13 O2 Del Method Room Air 02/01/25 11:13 BMI result Body Mass Index 32.9 Neuro: Other: He is alert and awake with normal spontaneity of speech fluency comprehension and somewhat flat affect. There is mild left-sided facial weakness and mild left pronator drift. Left visual field slightly affected. Deep tendon reflexes are absent. Speech is normal. Objective Data Active Medications Acetaminophen (Acetaminophen 325 Mg Tablet) 975 mg PO Q6H PRN PRN Reason: Pain, Mild 1-3,fever,headache Last Admin: 01/30/25 15:02 Dose: 975 mg Documented By: AKHIL Aspirin (Aspirin Enteric Coated 81 Mg Tablet.Dr) 81 mg PO DAILY [facility] Last Admin: 02/01/25 08:27 Dose: 81 mg Documented By: ANGELA Atorvastatin Calcium (Atorvastatin Calcium 80 Mg Tablet) 80 mg PO BEDTIME [facility] Last Admin: 01/31/25 19:41 Dose: 80 mg Documented By: MAGNUS Calcium Carbonate (Calcium Carbonate 750 Mg Tab.Chew) 750 mg PO Q4H PRN PRN Reason: Heartburn Clopidogrel Bisulfate (Clopidogrel Bisulfate 75 Mg Tablet) 75 mg PO DAILY [facility] Last Admin: 02/01/25 08:27 Dose: 75 mg Documented By: ANGELA Lisinopril 20 mg/ (Hydrochlorothiazide 12.5 mg) 0 mg PO DAILY [facility] Last Admin: 02/01/25 08:26 Dose: 2 tablet Documented By: ANGELA Enoxaparin Sodium (Enoxaparin Sodium 40 Mg/0.4 Ml Syringe) 40 mg SUBCUT Q24H [facility] Last Admin: 02/01/25 08:27 Dose: 40 mg Documented By: ANGELA Magnesium Hydroxide (Milk Of Magnesia 30 Ml Oral.Susp) 30 ml PO DAILY PRN PRN Reason: Constipation Last Admin: 01/31/25 16:02 Dose: 30 ml Documented By: RIVERA Magnesium Hydroxide (Milk Of Magnesia 30 Ml Oral.Susp) 30 ml PO DAILY PRN PRN Reason: Constipation Melatonin (Melatonin 3 Mg Tablet) 6 mg PO BEDTIME PRN PRN Reason: Insomnia Ondansetron HCl (Ondansetron Hcl 4 Mg/2 Ml Vial) 4 mg IVPUSH Q8H PRN PRN Reason: Nausea and Vomiting Last Admin: 01/30/25 09:36 Dose: 4 mg Documented By: AKHIL Oxycodone HCl (Oxycodone Hcl Immed Release 5 Mg Tablet) 5 mg PO Q6H PRN PRN Reason: Pain, Severe (Pain Scale 7-10) Sodium Chloride (0.9 % Sodium Chloride Flush 3 Ml Syringe) 3 ml IVFSH [facility] Last Admin: 02/01/25 08:27 Dose: 3 ml Documented By: FOSTEKR Labs 01/31/25 06:10 01/31/25 06:10 Assessment and Plan (1) Stroke: Status: Acute Plan 59M PMH htn presented with left sided parasthesias and weakness 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
[2025-02-01 15:51] VITALS: BP 126/81; PULSE 98; RESP 17; TEMP 36.3; O2SAT 96
== END 2025-02-01 16:00 | DRG 45 ==
LOC: HO.ED 01-29 00:56 → HO.EDOVER 01-29 01:15 → HO.IMC 01-29 03:30
PROVIDERS: Physician Assistant; Admitting Provider Physician Assistant; Emergency Provider Emergency Medicine Emergency Medical Services; PCP Internal Medicine; Visit Provider Internal Medicine
DX: I63.431 Cerebral infarction due to embolism of right posterior cerebral artery (principal); I10 Essential (primary) hypertension; R20.0 Anesthesia of skin; R29.700 NIHSS score 0; Z79.899 Other long term (current) drug therapy
CPT/HCPCS: 36415; 70450; 70496; 70498; 70551; 71275; 73521; 80048; 80053; 80061; 81001; 82607; 83880; 84443; 84484; 85025; 85027; 85610; 85730; 93005; 93306; 97162; 97166; 97530; 97535; 99285; J0360; J1650; J2405; J7120; Q9957; Q9967

== ENCOUNTER → 2025-01-28 15:03 | Outpatient (BNV) | payer BC, SELFPAY | PROVIDERS: Emergency Provider Emergency Medicine; PCP Internal Medicine; Visit Provider Radiology Diagnostic Radiology | DX: R20.2 Paresthesia of skin (principal) | CPT/HCPCS: 70450; 71275 ==

== ENCOUNTER 2025-01-29 01:09 | Outpatient (BNV) | payer BC, SELFPAY | END 2025-01-29 01:19 | PROVIDERS: Admitting Provider Physician Assistant; Emergency Provider Emergency Medicine Emergency Medical Services; PCP Internal Medicine; Visit Provider Radiology Diagnostic Radiology | DX: R20.2 Paresthesia of skin (principal) | CPT/HCPCS: 70496; 70498; 70551 ==

== ENCOUNTER 2025-01-29 01:09 | Outpatient (BNV) | payer BC, SELFPAY | END 2025-01-31 07:00 | PROVIDERS: Admitting Provider Physician Assistant; Emergency Provider Emergency Medicine Emergency Medical Services; PCP Internal Medicine; Visit Provider Internal Medicine Cardiovascular Disease | DX: I51.89 Other ill-defined heart diseases (principal); I77.810 Thoracic aortic ectasia | CPT/HCPCS: 93306 ==

== ENCOUNTER → 2025-01-29 01:09 | Outpatient (BNV) | payer BC, SELFPAY | PROVIDERS: Admitting Provider Physician Assistant; Emergency Provider Emergency Medicine Emergency Medical Services; PCP Internal Medicine; Visit Provider Internal Medicine | DX: I63.9 Cerebral infarction, unspecified (principal) | CPT/HCPCS: 99499 ==

== ENCOUNTER → 2025-01-29 01:09 | Outpatient (BNV) | payer BC, SELFPAY | PROVIDERS: Admitting Provider Physician Assistant; Emergency Provider Emergency Medicine Emergency Medical Services; PCP Internal Medicine; Visit Provider Psychiatry & Neurology Neurology | DX: I63.431 Cerebral infarction due to embolism of right posterior cerebral artery (principal) | CPT/HCPCS: 99254 ==

== ENCOUNTER 2025-03-07 15:22 | Outpatient (AMB) | payer BC, SELFPAY ==
--- OUTSIDE RECORDS SUMMARY | 2025-02-01 09:12 | XMS_ITS ---
Author Organization Antonio Leung MD Address [address] [place] [phone] Care Team Providers Care Floor Manager Name Role Phone Antonio Leung Primary Care Provider [phone] REASON FOR VISIT ER Encounters Encounter Location Date Provider Diagnosis Antonio Leung MD [facility] [address] [place] [address] [phone] 02/01/2025 Antonio Leung Plan Of Treatment Next Appt Details Provider Name:Antonio Euceda ier, 06/21/2025 07:30:00 AM, [address] [place] [address], [address] [place] [address], [phone], Provider Name:Antonio Euceda ier, 06/28/2025 01:00:00 PM, [address] [place] [address], [address], [phone], Progress Notes * Caesar HUMPHREYDOB:1965 (59 yo M)Acc No.[id number]:02/01/2025 Patient: Staci REIDvin :1965 A ge:59 Y S ex:Male Address:[address] [place], [address] * true * Date: Generated for Printi ng/Faxing/eTransmitting on: 0 03/07/2025 05:01 PM EDT
--- OUTSIDE RECORDS SUMMARY | 2025-02-02 05:19 | XMS_ITS ---
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 Name Role Phone Antonio Leung Primary Care Provider REASON FOR VISIT discharge Encounters Encounter Location Date Provider Diagnosis Antonio Leung MD [address] [place] [address] [address] [place] [phone] 02/02/2025 Antonio Leung Plan Of Treatment Next Appt Details Provider Name:Antonio Euceda ier, 06/21/2025 07:30:00 AM, [address] [place] [address], [address] [place] [address], [phone], Provider Name:Antonio Euceda ier, 06/28/2025 01:00:00 PM, [address] [place] [address], [address], [phone], Progress Notes * Caesar HUMPHREYDOB:1965 (60 yo M)Acc No.[id number]:02/02/2025 Patient: Staci REIDvin :1965 A ge:59 Y S ex:Male Address:[address] [place], [address] * true * Date: Generated for Printi ng/Faxing/eTransmitting on: 0 03/07/2025 05:01 PM EDT
--- OUTSIDE RECORDS SUMMARY | 2025-03-03 10:00 | XMS_ITS ---
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 Referral info faxed Referral Priority Routine Referral Appointment Date 03/07/2025 REASON FOR VISIT PH/TCM Medications Medication SIG (Take, Route, Frequency, Duration) Notes Start Date End Date Status Atorvastatin Calcium 80 MG 1 tablet Oral ly Once a day Active Plavix 75 MG 1 tablet Orally Once a day Active Aspirin 81 81 MG 1 tablet Orally Once a day Active Lisinopril 20 MG 1 tablet Orally Once a day Active Problems Problem Type SNOMED Code ICD Code Onset Dates Problem Status W/U Status Risk Notes Problem Occlusion of cerebral artery with stroke (6899793941477) CVA (cerebrovascul ar accident) (434.91) Active confirmed Problem CVA - Cerebrovascular accident (330370767) CVA (cerebral vascular accident) (434.91) Active confirmed Problem Cerebral infarction due to thrombosis of cerebral arteries (748735801) 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) Active confirmed Vital Signs Blood pressure systolic 98 mm Hg 03/03/20 25 Blood pressure diastolic 80 mm Hg 025 Height 73 in 03/03/2025 Weight 230 lbs 03/03/2025 BMI 30.34 kg/m2 03/03/2025 weight is down 26 pounds sin ce 12-23-24 Encounters Encounter Location Date Provider Diagnosis Antonio Leung MD [address] [place] [address] Drive [address] [place], [place] [id number] 03/03/2025 Antonio Leung Abnormal MRI of head R93.0 and 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 Plan Of Treatment Treatment Notes Assessment Notes Abnormal MRI of head with cva and questi on of ms on mri. will need follow up with neurology Cerebral infarction due to t hrombosis of left posterior cerebral artery is improving with rehab Other Total time spent on the date of the encounter is 35 minutes including both face to face time spent and time spent reviewing documentation, pertinent lab data, studies and counseling the patient. Referrals Referral Date Details 03/03/2025 03/03/2025, Abnormal MRI of head with CVA and question of MS on MRI, Noah Sams Next Appt Details Provider Name:Antonio Euceda ier, 06/21/2025 07:30:00 AM, [address] [place] [address], [address], [place], [place], [phone], Provider Name:Antonio richardson, 06/28/2025 01:00:00 PM, [address] [place] [address], [address], [place], [place], [phone], Progress Notes * Pj HUMPHREY:1965 (60 yo M)Acc No.[id number]:03/03/2025 Patient: Caesar REID Provider: Rody Leung MD :1965 A ge:60 Y S ex:Male Date:03/03/2025 Address:[address] [place], [place] [id number] Subjective: * Chief Complaints: * P H/TCM * HPI: S ymptom(s): patient is a 60 yo male here for transitional care management visit. Discharge summary has been reviewed and medications reconcilled/ january 28 had a stroke was in hospital for one week. * ROS: G eneral/Constitutional: Denies C hills. D enies F atigue. D enies F ever. D enies H eadache. E NT: Denies S ore throat. R espiratory: Denies C ough. D enies S hortness of breath at rest. D enies S hortness of breath with exertion. C ardiovascular: Denies C hest pain at rest. D enies C hest pain with exertion. D enies D izziness. D enies P alpitations. D enies S hortness of breath. G astrointestinal: Denies D iarrhea. D enies N ausea. * Medical History: * Surgical History: * Hospitalization/Major Diagno stic Procedure: * Medications: T akingAspirin 81 81 MG Tablet Delayed Release 1 tablet Orally Once a day Lisinopril 20 MG Tablet 1 tablet Orally Once a day Atorvastatin Calcium 80 MG Tablet 1 tablet Orally Once a day Plavix 75 MG Tablet 1 tablet Orally Once a day Taking Aspirin 81 81 MG Tablet Delayed Release 1 tablet Orally Once a day Taking Lisinopril 20 MG Tablet 1 tablet Orally Once a day Taking Atorvastatin Calcium 80 MG Tablet 1 tablet Orally Once a day Taking Plavix 75 MG Tablet 1 tablet Orally Once a day DiscontinuedLisinopril-hydroCHLOROthiazide 20-12.5 MG Tablet take 1 tablet by mouth every day Orally Once a day Medication List reviewed and reconciled with the patientDiscontinued Lisinopril-hydroCHLOROthiazide 20-12.5 MG Tablet take 1 tablet by mouth every day Orally Once a day Medication List reviewed and reconciled with the patient * Allergies: N .K.D.A.yes[Allergies Verified] Objective: * Vitals: H t: 73, Wt: 230, BMI:30.34, BP:98/80, Wt-k.33. weight is down 26 pounds since 12-23-24. * Examination: G eneral Examination: GENERAL APPEARANCE: a lert, well hydrated, in no distress.? HEAD: n ormocephalic. SKIN: g ood turgor. HEART: r egular rate and rhythm, no murmurs, rubs, gallops.? LUNGS: n o wheezes, rales, rhonchi, good air movement, clear to auscultation bilaterally. NEUROLOGIC: w ith left sided weakness good speech. ? Assessment: * Assessment: 1. A bnormal MRI of head - R93.0 (Primary) 2 . C erebral infarction due to thrombosis of left posterior cerebral artery - I63.332 Plan: * Treatment: 2. C erebral infarction due to thrombosis of left posterior cerebral artery Notes: is improving with rehab Referral To:Noah Sams Neurology Reason:Abnormal MRI of head with CVA and question of MS on MRI 3. O thers Notes: Total time spent on the date of the encounter is 35 minutes including both face to face time spent and time spent reviewing documentation, pertinent lab data, studies and counseling the patient. * Procedure Codes: * * Sign off status: Completed true * Provider: Rody Leung MD Date: 03/03/2025 Generated for Fay clifford/Kurt/eTefrasmitting on: 03/07/2025 05:01 PM EDT History and Physical Notes * HPI (History of Present Illness) Category Sub-Category Detail Notes Category Not es Symptom(s) patient is a 60 yo male here for transitional care management visit. Discharge summary has been reviewed and medications reconcilled/ january 28 had a stroke was in hospital for one week. Examination Category Sub-Category Detail Notes Category Not es General Examination GENERAL APPEARANCE: alert, w ell hydrated, in no distress HEAD: normocephalic HEART: regular rate and rhy thm, no murmurs, rubs, gallops LUNGS: no wheezes, rales, r honchi, good air movement, clear to auscultation bilaterally NEUROLOGIC: with left sided weak ness good speech SKIN: good turgor Consultation Request Notes Referral Date Referring Provider Referred Provider Not es 03/03/2025 Antonio Leung, Noah Abnorma l MRI of head with CVA and question of MS on MRI
--- NOTE | 2025-03-07 15:53 | MHC.OFFVIS ---
Intake Visit Reasons: stroke / abnormal mri Allergies No Known Allergies Allergy (Verified 01/28/25 14:00) Medication List - Last Reconciled 03/07/25 by Reynaldo Sams MD aspirin 81 mg PO DAILY atorvastatin 80 mg PO BEDTIME clopidogrel (Plavix) 75 mg PO DAILY lisinopril-hydrochlorothiazide 20-12.5 mg 1 tab PO DAILY HPI Comments Details: 60 years old man with relatively large right posterior cerebral artery embolic looking ischemic infarct of brain, probably from cardiac source of embolism. Underneath, his brain MRI also revealed significant changes suggestive of chronic demyelinating disease. He is presenting with evaluation and management of neurological symptoms following a stroke. He suffered an ischemic stroke that primarily affected the right side of his brain, leading to right hemianopia, which impacts his visual field on the right side. There was some discussion about the vision impairment involving the left periphery as well, but the primary confirmation was the right-sided visual deficit. Prior to the stroke, the patient was in good health and actively employed, driving regularly without issue. Current medications include atorvastatin for hyperlipidemia, and antiplatelet therapy initially involved both aspirin and clopidogrel. Due to management decisions, clopidogrel has been discontinued. The patient denied taking aspirin before the stroke event. Therapy consists of ongoing physical rehabilitation, and there are plans for cardiac monitoring to exclude embolic sources from the heart. The stroke has affected his daily functioning, including the inability to drive, which has substantially impacted his lifestyle. [facility] Medical History (Updated 03/07/25 @ 15:57 by Reynaldo Sams MD) Colitis Class 1 obesity HTN (hypertension) Social History Household Members: Family [facility] Do you presently have visiting nurse or other home services: No Patient Tobacco Use Status: Never used Tobacco Advance Directives Date on File: 01/29/25 service: No Review of Systems Const Details: - Neurologic: Reports right-sided visual field loss, denies hallucinations - Cardiovascular System: Denies current cardiac symptoms, mentioned for future monitoring - Musculoskeletal: Reports use of a wheelchair due to prolonged standing affecting mobility Physical Exam Neuro Other: Mental Status: Alert and oriented to person, place, and time. Normal attention. Normal spontaneous speech, fluency, and comprehension. Cranial Nerves: CN II: Left hemianopsia CN III, IV, : Pupils equal, round, reactive to light and accommodation. Extraocular movements are normal. CN V: Facial sensation is normal. CN VII: Facial movements symmetrical. CN VIII: Hearing intact to bedside conversation is normal. CN IX, X: Palate elevates symmetrically. CN XI: Shoulder shrug and head turn symmetrical. CN XII: Tongue midline without atrophy or fasciculations. Extrapyramidal: Full facial expressions and blinking. No rigidity. Movements are appropriate with no tremor or abnormality. Speech: Normal; no dysarthria or tremor. Assessment & Plan Assessment & Plan (1) Posterior cerebral artery syndrome: Comment: [place] brain [place] [facility] [place]: Large right [employer] area acute infarct, mod demylinating type changes CTA brain and neck [place] [facility] [place]: R P2 occlusion Code(s): G46.2 - Posterior cerebral artery syndrome Category: Medical Plan: During the visit, we discussed the management of the patient?s post-stroke condition. I explained the decision to discontinue clopidogrel while continuing aspirin as mono-therapy due to adequate stroke prevention benefits versus associated risks. The plan for obtaining cardiac monitoring through a Holter monitor was reviewed, highlighting its importance in identifying possible cardiac embolic sources, a common cause for recurrent strokes. We confirmed ongoing physical therapy services to support rehabilitation. The necessity of maintaining control over hypertension and lipid levels was emphasized, along with ensuring adherence to prescribed medications including atorvastatin for hyperlipidemia. 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
--- OUTSIDE RECORDS SUMMARY | 2025-03-07 17:01 | XMS_ITS | Patient Health Record ---
Author Organization Antonio Leung MD Address [address] [place], [place] [id number] Care Team Providers Care Fashion Journalist Name Role Phone Antonio Leung Primary Care Provider Allergies No Known Allergies Results Component Value Reference Range Notes Complete Blood Count Auto Di ff Reviewed date:06/17/2024 03:15:00 PM Interpretation: Performing Lab:[facility], [address] [place] [phone] Notes/Report: White Blood Count 7.3 4.8-10.8 X10*3/uL [...] NRBC Abs Auto 0.000 0.0-0.012 X10*3/uL Comprehensive [facility]. Panel Fa st Reviewed date:06/17/2024 12:50:37 PM Interpretation: Performing Lab:[address] [address] Notes/Report: Sodium 138 135-145 mmol/L Potassium 3.8 [...] PROFILE Reviewed date:06/17/2024 12:54:01 PM Interpretation: Performing Lab:[address] [address] Notes/Report: Iron 81 45-160 mcg/dL Total Iron Binding Capacity 285 228-428 mcg/dL Percent Iron Saturation 28 15-50 % Unsaturated Iron Binding 204 Lipid Panel Reviewed date:06/17/2024 12:53:52 PM Interpretation: Performing Lab:[address] [address] Notes/Report: Triglycerides 101 <150 mg/dL Desirable Triglyceride: [...] (Free>4and<10) Reviewed date:06/17/2024 12:50:45 PM Interpretation: Performing Lab:[address] [address] Notes/Report: PSA,Total (Free>4and<10) 0.31 0.00-4.00 ng/mL A [...] t Reviewed date:06/17/2024 12:55:53 PM Interpretation: Performing Lab:[address] [address] Notes/Report: Urine, Clean Catch Color Urine Yellow Appearance Urine Clear PH 5.5 5.0-9.0 Glucose Urine UA Negative Negative mg/dL Urine Blood Negative Negative Specific [place] - Urine 1.020 1.005-1.025 Urine Protein Negative [...] Notes/Report: Negative Occult Blood, Stool, Guaiac Negx2 Complete Blood Count Auto Di ff Reviewed date:01/28/2025 04:09:01 PM Interpretation: Performing Lab:[facility], [address] [place] [address] Notes/Report: White Blood Count 8.4 4.8-10.8 X10*3/uL Red Blood Count 5.16 4.60-5.80 X10*6/uL Hemoglobin 14.6 14.0-18.0 g/dl Hematocrit 43.4 42.0-52.0 % Mean Corpuscular Volume 84.1 80.0-98.0 fL Mean Corpuscular Hemoglobin 28.3 27.0-33.0 pg Mean Corpuscular HGB Conc 33.6 31.0-36.0 g/dl Red Cell Distribution Width 14.4 11.0-16.0 % Platelet Count 282 160-400 X10*3/uL Mean Platelet Volume 9.9 9.4-12.4 fL Neutrophils Percent Auto 74.9 45-73 % Imm Gran Pct Auto 0.2 0.0-0.4 % Lymphocytes Percent Auto 17.0 20-40 % Monocytes Percent Auto 7.6 2-11 % Eosinophils Percent Auto 0.1 0-4 % Basophils Percent Auto 0.2 0-2 % NRBC Pct Auto 0.0 0.0-0.2 /100WBC Neutrophils Absolute Auto 6.3 2.0-8.3 x10*3/u L Imm Gran Abs Auto 0.02 0.00-0.03 X10*3/uL Lymphocytes Absolute Auto 1.4 1.2-4.9 X10*3/u L Monocytes Absolute Auto 0.6 0.1-1.2 X10*3/uL Eosinophils Absolute Auto 0.0 0.0-0.4 X10*3/u L Basophils Absolute Auto 0.0 0.0-0.2 X10*3/uL NRBC Abs Auto 0.000 0.0-0.012 X10*3/uL Prothrombin Time INR Reviewed date:01/28/2025 04:12:16 PM Interpretation: Performing Lab:[facility], [address] [place] [address] Notes/Report: Prothrombin Time 11.9 10.9-12.4 SEC INTERNATIONAL NORM RATIO 1.0 0.9-1.1 INTERNATIONAL NORMALIZED RATIO (INR) REFERENCE RANGES Reference Range For patients not on anticoagulant therapy: 0.9 - 1.1 INR ranges for oral anticoagulant therapy: For prevention and treatment of venous thrombosis and pulmonary embolism: 2.0 - 3.0 For acute myocardial infarction with aspirin therapy: 2.0 - 3.0 For acute myocardial infarction without aspirin therapy: 3.0 - 4.0 For patients with mechanical prosthetic heart valves: 2.5 - 3.5 Partial Thromboplastin Time Reviewed date:01/28/2025 04:12:32 PM Interpretation: Performing Lab:[facility], [address] [place] [address] Notes/Report: Partial Thromboplastin Time 26.8 26.0-36.8 SEC For information regarding the monitoring of direct thrombin inhibitors, please refer to Pharmacy. Urinalysis and Microscopic Reviewed date:01/29/2025 05:37:27 PM Interpretation: Performing Lab:[facility], [address] [place] [phone] Notes/Report: Color Urine Yellow Appearance Urine Clear PH 8.0 5.0-9.0 Glucose Urine UA Negative Negative mg/dL Urine Blood Negative Negative Specific [place] - Urine 1.015 1.005-1.025 Urine Protein Negative Neg-Trace mg/dL Urine Ketones Negative Negative mg/dL Nitrite Urine Negative Negative Leukocyte Esterase Urine Negative Negative RBC Urine 0-2 0-2 /HPF WBC Urine 0-5 0-5 /HPF Squamous Epithelial Cell Urine 0-2 0-2 /HPF Bacteria Urine None Seen None Seen Hyaline Casts Urine 0-2 0-2 /LPF Comprehensive Met. Panel Reviewed date:01/28/2025 04:07:01 PM Interpretation: Performing Lab:[facility], [address] [place] [address] Notes/Report: Sodium 138 135-145 mmol/L Potassium 3.9 3.3-5.1 mmol/L Chloride 104 96-108 mmol/L Carbon Dioxide 25 22-29 mmol/L Anion Gap 13 12-20 Blood Urea Nitrogen 7 9-16 mg/dL Creatinine 1.02 0.5-1.4 mg/dL Creatinine Clr Calc Pharmacy 105.2 eGFR (calculated from the MDRD study equation) and eCrCl (calculated from the Cockcroft-Gault equation) are based on different parameters and may not yield comparable results. If eCrCl result is absurd, please check patient's height/weight. Estimated Glomerular Filt Rate > 60 Chronic Kidney Disease: Estimated GFR < 60 mL/min/1.73m2 Severe Kidney Disease: Estimated GFR < 15 mL/min/1.73m2 Glucose Random 105 60-115 mg/dL Calcium 9.6 8.4-10.2 mg/dL Bilirubin Total 0.6 0.0-1.0 mg/dL Aspartate Amino Transferase 38 5-37 U/L Alanine Aminotransferase 38 0-40 U/L Total Protein 8.4 6.5-8.0 g/dL Albumin Level 4.5 3.5-5.0 g/dL Alkaline Phosphatase 76 39-117 U/L Troponin-I High Sensitivity Reviewed date:01/28/2025 04:12:24 PM Interpretation: Performing Lab:[facility], [address] [place] [address] Notes/Report: Troponin-I High Sensitivity < 2.7 <3.5-35.0 ng/L The Evans high sensitivity Troponin-I results should be used in conjunction with other diagnostic information such as ECG, clinical observations and information, and patient symptoms to aid in the diagnosis of ME. B Type Natriuretic Peptide Reviewed date:01/28/2025 04:16:41 PM Interpretation: Performing Lab:[facility], [address] [place] [address] Notes/Report: B Type Natriuretic Peptide < 10 <100 pg/mL CT angio chest PE protocol Reviewed date:01/29/2025 05:32:04 PM Interpretation: Performing Lab: Notes/Report: [address] [address] [address] Scan Report Signed Patient: Caesar Humphrey MR#: [id number] 6 : 1965 Acct:[id number] Age/Sex: 59 / M ADM Date: 01/28/25 Loc: HO.ED Attending Dr: Ordering Physician: Eb Grady DO Date of Service: 01/28/25 Procedure(s): CT angio chest PE protocol Accession Number(s): [id number] cc: Antonio Leung MD; Eb Grady DO Report Number: [id number]: Total DLP = 0.00 mGy-cm CLINICAL HISTORY: chest pain CT angiography of the chest with IV contrast. 3D/MIP post processing reconstructions were performed. COMPARISON: None provided. FINDINGS: Motion limits evaluation of the distal pulmonary arteries. No intraluminal filling defects within the main or lobar pulmonary arteries to suggest pulmonary embolism. No evidence of right heart strain. Visualized thyroid is unremarkable. No supraclavicular or axillary lymphadenopathy. Ascending aorta and main pulmonary artery are normal in caliber. No pericardial effusion. Normal esophagus. No pleural effusion. No consolidation. Trachea and central airways are clear. No significant bronchial wall thickening. No bronchiectasis. Visualized portions of the upper abdomen are unremarkable. Flowing marginal osteophytes along the lower thoracic spine. No acute fracture. IMPRESSION: 1. No evidence of pulmonary embolism within the main or lobar pulmonary arteries. Motion limits evaluation of the distal pulmonary arteries. 2. No acute intrathoracic findings. No evidence of pneumonia. This document has been electronically signed by: Yaron Flood MD on 01/28/2025 17:59:29 Dictated By: Yaron Flood MD Signed By: <Electronically signed by Yaron Flood MD in OV> 01/28/25 1800 DD/ 58 TD/TT: 01/28/251758 Impersonator Character: [address] [address] [address] Scan Report Signed Patient: Alyssa Humphrey in MR#: [id number] 6 : 1965 Acct:[id number] Age/Sex: 59 / M ADM Date: 01/28/25 Loc: HO.ED Attending Dr: Ordering Physician: Eb Grady DO Date of Service: 01/28/25 Procedure(s): CT ang io chest PE protocol Accession Number(s): [id number] cc: Antonio Leung MD; Eb Grady DO Report Number: [id number]: Total DLP = 0.00 mGy-cm CLINICAL HISTORY: ch est pain CT angiography of th e chest with IV contrast. 3D/MIP post processing reconstructions were performed. COMPARISON: None provided. FINDINGS: Motion limits evaluation of the distal pulmonary arteries. No intraluminal filling defects with in the main or lobar pulmonary arteries to suggest pulmonary embolism. No evidence of right heart strain. Visualized thyroid i s unremarkable. No supraclavicular o r axillary lymphadenopathy. Ascending aorta and main pulmonary artery are normal in caliber. No pericardial effusion. Normal esophagus. No pleural effusion. No consolidation. Trachea and central airways are clear. No significant bronchial wall thickening. No bronchiectasis. Visualized portions of the upper abdomen are unremarkable. Flowing marginal osteophytes along the lower thoracic spine. No acute fracture. IMPRESSION: 1. No evidence of pulmonary embolism within the main or lobar pulmonary arteries. Motion khan its evaluation of the distal pulmonary arteries. 2. No acute intrathoracic findings. No evidence of pneumonia. This document has be en electronically signed by: Yaron Flood MD on 01/28/2025 17:59:29 Dictated By: Yaron Flood MD Signed By: <Electronically signed by Yaron Flood MD in OV> 01/28/25 1800 DD/ 58 TD/TT: 01/28/251758 Impersonator Character: Complete Blood Count no Diff Reviewed date:01/29/2025 05:26:30 PM Interpretation: Performing Lab:[facility], [address] [place] [phone] Notes/Report: White Blood Count 10.1 4.8-10.8 X10*3/uL Red Blood Count 5.27 4.60-5.80 X10*6/uL Hemoglobin 14.9 14.0-18.0 g/dl Hematocrit 45.4 42.0-52.0 % Mean Corpuscular Volume 86.1 80.0-98.0 fL Mean Corpuscular Hemoglobin 28.3 27.0-33.0 pg Mean Corpuscular HGB Conc 32.8 31.0-36.0 g/dl Red Cell Distribution Width 14.8 11.0-16.0 % Platelet Count 176 160-400 X10*3/uL Mean Platelet Volume 11.2 9.4-12.4 fL NRBC Pct Auto 0.0 0.0-0.2 /100WBC NRBC Abs Auto 0.000 0.0-0.012 X10*3/uL Basic Metabolic Panel Reviewed date:01/29/2025 05:30:23 PM Interpretation: Performing Lab:[address] [address] Notes/Report: Sodium 138 135-145 mmol/L Potassium 4.1 3.3-5.1 mmol/L Chloride 104 96-108 mmol/L Carbon Dioxide 26 22-29 mmol/L Anion Gap 12 12-20 Blood Urea Nitrogen 7 9-16 mg/dL Creatinine 0.84 0.5-1.4 mg/dL Creatinine Clr Calc Pharmacy 128.2 eGFR (calculated from the MDRD study equation) and eCrCl (calculated from the Cockcroft-Gault equation) are based on different parameters and may not yield comparable results. If eCrCl result is absurd, please check patient's height/weight. Estimated Glomerular Filt Rate > 60 Chronic Kidney Disease: Estimated GFR < 60 mL/min/1.73m2 Severe Kidney Disease: Estimated GFR < 15 mL/min/1.73m2 Glucose Random 95 60-115 mg/dL Calcium 9.7 8.4-10.2 mg/dL Vitamin B12 Reviewed date:01/29/2025 04:52:09 PM Interpretation: Performing Lab:[address] [address] Notes/Report: Vitamin B12 692 200-900 pg/mL NORMAL 200-900 PG/ML INDETERMINATE 160-199 PG/ML DEFICIENT < 160 PG/ML CT angio head neck Reviewed date:01/29/2025 05:30:06 PM Interpretation: Performing Lab: Notes/Report: [id number] [place] [address] CT Scan Report Signed with Graham Patient: Caesar Humphrey MR#: [id number] 6 : 1965 Acct:[id number] Age/Sex: 59 / M ADM Date: 01/29/25 Loc: [facility]: Jocy Walton PA-C Ordering Physician: Jocy Walton PA-C Date of Service: 01/29/25 Procedure(s): CT angio head neck Accession Number(s): [id number] cc: Antonio Leung MD; Jocy Walton PA-C Report Number: [id number]: Total DLP = 658.00 mGy-cm ADDENDUM This document has been electronically signed by: Josemanuel Gastelum MD on 01/29/2025 02:47:56 ADDENDUM: This report was discussed with Thomas Muhammad MD on Jan 29, 2025 02:49:00 EDT. This document has been electronically signed by: Dana Lui on 01/29/2025 02:51:54 Addendum Dictated By: Josemanuel Gastelum MD Addendum Signed By: <Electronically signed by Josemanuel Gastelum MD in OV> 01/29/25252 Addendum Cosigned By: DD/ TD/TT: 01/29/25 CLINICAL HISTORY: ?CVA --- Additional Notes or Special Instructions: INJECTED WITH PERMISSION FROM DR VILLARREAL CT angiography head and neck with contrast. 3-D postprocessing Comparison: CT/SR - CT HEAD/BRAIN WO IV CON - 01/28/25 23:33 EDT Findings: The bilateral common carotid arteries and cervical portions of the internal carotid arteries appear patent without hemodynamically significant stenosis. The vertebral arteries appear patent bilaterally at the level of the neck. No carotid or vertebral dissection is seen. There is no evidence of vasculitis. No focal consolidation or effusion identified within the visualized portions of the bilateral lung apices. Enlarged 1.5 cm short axis left paratracheal lymph node on axial image number 515 of series 9. The intracranial vertebrobasilar system appears patent. Cerebellar and left posterior cerebral arteries appear patent. There appears to be occlusion of the right P2 segment. Intracranial internal carotid arteries appear patent. Middle/anterior cerebral arteries also appear patent. No aneurysms visualized. Impression: 1. Patent bilateral carotid and vertebral arterial systems at the level of the neck without hemodynamically significant stenosis. 2. Occlusion of the right P2 segment. The anterior and posterior intracranial arterial circulation otherwise appears patent. This document has been electronically signed by: Josemanuel Gastelum MD on 01/29/2025 02:47:56 Dictated By: Josemanuel Gastelum MD Signed By: <Electronically signed by Josemanuel Gastelum MD in OV> 01/29/25 0249 DD/ 6 TD/TT: 01/29/25246 Impersonator Character: [place] [address] [address] Scan Report Signed with Addenda Patient: Alyssa Humphrey in MR#: [id number] 6 : 1965 Acct:[id number] Age/Sex: 59 / M ADM Date: 01/29/25 Loc: [facility]: Kaylie Walton PA-C Ordering Physician: Jocy Walton PA-C Date of Service: 01/29/25 Procedure(s): CT ang io head neck Accession Number(s): [id number] cc: Antonio Leung MD; Jcoy Walton PA-C Report Number: [id number]: Total DLP = 658.00 mGy-cm ADDENDUM This document has be en electronically signed by: Josemanuel Gastelum MD on 01/29/2025 02:47:56 ADDENDUM: This report was discussed with Thomas Muhammad MD on Jan 29, 2025 02:49:00 EDT. This document has be en electronically signed by: Dana Lui on 01/29/2025 02:51:54 Addendum Dictated By : Josemanuel Gastelum MD Addendum Signed By: <Electronically signed by Josemanuel Gastelum MD in OV> 01/29/25 0253 Addendum Cosigned By: DD/ TD/TT: 01/29/25 CLINICAL HISTORY: ?C [facility] --- Additional Notes or Special Instructions: INJECTED WITH PERMISSION FROM DR VILLARREAL CT angiography head and neck with contrast. 3-D postprocessing Comparison: CT/SR - CT HEAD/BRAIN WO IV CON - 01/28/25 23:33 EDT Findings: The bilateral common carotid arteries and cervical portions of the internal carotid arteries appear patent without hemodynamically significant stenosis. The vertebral arteri es appear patent bilaterally at the level of the neck. No carotid or verteb ral dissection is seen. There is no evidence of vasculitis. No focal consolidati on or effusion identified within the visualized portions of the bilateral lung apices. Enlarged 1.5 cm short axis left paratracheal lymph n ode on axial image number 515 of series 9. The intracranial vertebrobasilar system appears patent. Cerebellar and left posterior cereb ral arteries appear patent. There appears to be occlusion of the rig ht P2 segment. Intracranial interna l carotid arteries appear patent. Middle/anterior cerebral arteries al so appear patent. No aneurysms visualized. Impression: 1. Patent bilateral carotid and vertebral arterial systems at the level of the neck without hemodynamically significant stenosis. 2. Occlusion of the right P2 segment. The anterior and posterior intracranial arteria l circulation otherwise appears patent. This document has be en electronically signed by: Josemanuel Gastelum MD on 01/29/2025 02:47:56 Dictated By: Josemanuel Gastelum MD Signed By: <Electronically signed by Josemanuel Gastelum MD in OV> 01/29/25248 DD/ 6 TD/TT: 01/29/25246 Impersonator Character: CT head/brain wo con Reviewed date:01/29/2025 05:31:01 PM Interpretation: Performing Lab: Notes/Report: [address] [address] [address] Scan Report Signed with Graham Patient: Caesar Humphrey MR#: [id number] 6 : 1965 Acct:[id number] Age/Sex: 59 / M ADM Date: 01/28/25 Loc: HO.ED Attending Dr: Ordering Physician: Juan Loomis MD Date of Service: 01/28/25 Procedure(s): CT head/brain wo IV con Accession Number(s): [id number] cc: Antonio Leung MD; Juan Loomis MD Report Number: [id number]: Total DLP = 969.00 mGy-cm ADDENDUM This document has been electronically signed by: Paul Vale MD on 01/29/2025 00:09:18 ADDENDUM: This report was discussed with Damon Martinez on Jan 29, 2025 00:18:00 EDT. This document has been electronically signed by: Talisha Mcdonald on 01/29/2025 00:18:39 Addendum Dictated By: Paul Vale MD Addendum Signed By: <Electronically signed by Paul Vale MD in OV> 01/29/2518 Addendum Cosigned By: DD/ TD/TT: 01/29/25 CLINICAL HISTORY: Left facial numbness, left arm numbness R O stroke --- Additional Notes or Special Instructions: , bleed; PT WAS INJECTED AT 17:30 - SPOKE WITH DR LOOMIS CT head without contrast Comparison: None provided Findings: Age-indeterminate possibly subacute right occipital infarct. No acute intracranial hemorrhage is identified. MRI may be of value to determine infarct age. Mild chronic ischemic white matter disease without volume loss. No acute process in sinuses or mastoids. No acute bony abnormality. Impression: Age-indeterminate possibly subacute right occipital infarct This document has been electronically signed by: Paul Vale MD on 01/29/2025 00:09:18 Dictated By: Paul Vale MD Signed By: <Electronically signed by Paul Vale MD in OV> 01/29/259 DD/ TD/TT: 01/29/258 Impersonator Character: [address] [address] [address] Scan Report Signed with Addenda Patient: Alyssa Humphrey in MR#: [id number] 6 : 1965 Acct:[id number] Age/Sex: 59 / M ADM Date: 01/28/25 Loc: HO.ED Attending Dr: Ordering Physician: Juan Loomis MD Date of Service: 01/28/25 Procedure(s): CT head/brain wo IV con Accession Number(s): [id number] cc: Antonio Leung MD; Juan Loomis MD Report Number: [id number]: Total DLP = 969.00 mGy-cm ADDENDUM This document has be en electronically signed by: Paul Vale MD on 01/29/2025 00:09:18 ADDENDUM: This report was discussed with Damon Martinez on Jan 29, 2025 00:18:00 EDT. This document has be en electronically signed by: Talisha Mcdonald on 01/29/2025 00:18:39 Addendum Dictated By : Paul Vale MD Addendum Signed By: <Electronically signed by Paul Vale MD in OV> 01/29/2518 Addendum Cosigned By: DD/ TD/TT: 01/29/25 CLINICAL HISTORY: Le ft facial numbness, left arm numbness R O stroke --- Additional Notes or Special Instructions: , randy ball; PT WAS INJECTED AT 17:30 - SPOKE WITH DR LOOMIS CT head without contrast Comparison: None provided Findings: Age-indeterminate possibly subacute right occipital infarct. No acute intracrania l hemorrhage is identified. MRI may be of value to determine infarct age. Mild chronic ischemi c white matter disease without volume loss. No acute process in sinuses or mastoids. No acute bony abnormality. Impression: Age-indeterminate possibly subacute right occipital infarct This document has be en electronically signed by: Paul Vale MD on 01/29/2025 00:09:18 Dictated By: Paul Vale MD Signed By: <Electronically signed by Paul Vale MD in OV> 01/29/259 DD/ TD/TT: 01/29/258 Impersonator Character: MR head/brain wo con Reviewed date:01/29/2025 05:28:25 PM Interpretation: Performing Lab: Notes/Report: [address] [address] Magnetic Resonance Report Signed Patient: Caesar Humphrey MR#: [id number] 6 : 1965 Acct:[id number] Age/Sex: 59 / M ADM Date: 01/29/25 Loc: [facility] 470-[address]: Mateus Hong MD Ordering Physician: Jocy Walton PA-C Date of Service: 01/29/25 Procedure(s): MR head/brain wo con Accession Number(s): [id number] cc: Antonio Leung MD; Jocy Walton PA-C CLINICAL HISTORY: r o CVA --- Additional Notes or Special Instructions: to be done in AM MR Brain without gadolinium Comparison: CT/SR - VASCULAR CTA_HEAD_NECK (ADULT) - 01/29/25 01:[address]/SR - CT HEAD/BRAIN WO IV CON - 01/28/25 23:33 EDT Findings: There is restricted diffusion involving the right temporal-occipital region as well as the right thalamus. There is corresponding low signal on the ADC map. No intra-axial mass or hemorrhage. No midline shift. No hydrocephalus. Vascular flow voids are intact. Prominent somewhat linear T2 signal prolongation along the corpus callosum, juxtacortical and periventricular white matter. The orbits are normal. The sinuses and mastoid air cells are clear. No focal bone lesion. 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 Prominent white matter disease including the corpus callosum. Correlation for multiple sclerosis. This document has been electronically signed by: Von Alcantara MD on 01/29/2025 11:53:24 Dictated By: Von Alcantara MD Signed By: <Electronically signed by Von Alcantara MD in OV> 01/29/25 1154 DD/ 1153 TD/TT: 01/29/25 1153 Impersonator Character: [address] [address] Magnetic Resonance Report Signed Patient: Alyssa Humphrey in MR#: [id number] 6 : 1965 Acct:[id number] Age/Sex: 59 / M ADM Date: 01/29/25 Loc: [facility] 470-[address]: Sorin Hong MD Ordering Physician: Jocy Walton PA-C Date of Service: 01/29/25 Procedure(s): MR head/brain wo con Accession Number(s): [id number] cc: Antonio Leung MD; Jocy Walton PA-C CLINICAL HISTORY: r o CVA --- Additional Notes or Special Instructions: to be done in AM MR Brain without gadolinium Comparison: CT/SR - VASCULAR CTA_HEAD_NECK (ADULT) - 01/29/25 01:[address]/SR - CT HEAD/BRAI N WO IV CON - 01/28/25 23:33 EDT Findings: There is restricted diffusion involving the right temporal-occipital region as well as th e right thalamus. There is correspondi ng low signal on the ADC map. No intra-axial mass or hemorrhage. No midline shift. No hydrocephalus. Vascular flow voids are intact. Prominent somewhat linear T2 signal prolongation along the corpus callosum, juxtacorti shivani and periventricular white matter. The orbits are normal. The sinuses and mast oid air cells are clear. No focal bone lesion. 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 Prominent white joesph er disease including the corpus callosum. Correlation for multiple sclerosis. This document has be en electronically signed by: Von Alcantara MD on 01/29/2025 11:53:24 Dictated By: Von Alcantara MD Signed By: <Electronically signed by Von Alcantara MD in OV> 01/29/25 1154 DD/ 1153 TD/TT: 01/29/25 1153 Impersonator Character: LAVELLE napoles PEL1V Reviewed date:01/30/2025 05:24:02 PM Interpretation: Performing Lab: Notes/Report: [address] [address] XRay Report Signed Patient: Caesar Humphrey MR#: [id number] 6 : 1965 Acct:[id number] Age/Sex: 59 / M ADM Date: 01/29/25 Loc: [facility] 470-[address]: Mateus Hong MD Ordering Physician: Brian Villarreal MD Date of Service: 01/29/25 Procedure(s): XR hip BI w PEL1V Accession Number(s): [id number] cc: Antonio Leung MD; Brian Villarreal MD CLINICAL HISTORY: fall 5 view, pelvis and bilateral hips. Comparison: None provided Findings: No acute fracture or dislocation. The bilateral hips appear intact. IMPRESSION: 1. No acute fracture or dislocation injury identified at the bony pelvis or bilateral hips. This document has been electronically signed by: Josemanuel Gastelum MD on 01/29/2025 23:46:01 Dictated By: Josemanuel Gastelum MD Signed By: <Electronically signed by Josemanuel aGstelum MD in [place]> 01/29/252346 DD/ 45 TD/TT: 01/29/252345 Impersonator Character: [place] [id number] XRay Report Signed Patient: Alyssa Humphrey in MR#: [id number] 6 : 1965 Acct:[id number] Age/Sex: 59 / M ADM Date: 01/29/25 Loc: [facility] 470-[address]: Sorin Hong MD Ordering Physician: Brian Villarreal MD Date of Service: 01/29/25 Procedure(s): XR hip BI w PEL1V Accession Number(s): [id number] cc: Atnonio Leung MD; Brian Villarreal MD CLINICAL HISTORY: fall 5 view, pelvis and bilateral hips. Comparison: None provided Findings: No acute fracture or dislocation. The bilateral hips appear intact. IMPRESSION: 1. No acute fracture or dislocation injury identified at the bony pelvis or bilateral hips. This document has be en electronically signed by: Josemanuel Gastelum MD on 01/29/2025 23:46:01 Dictated By: Josemanuel Gastelum MD Signed By: <Electronically signed by Josemanuel Gastelum MD in [place]> 01/29/252346 DD/ 45 TD/TT: 01/29/252345 Impersonator Character: Complete Blood Count no Diff Reviewed date:01/30/2025 05:20:46 PM Interpretation: Performing Lab:[facility], [address] [place] [phone] Notes/Report: White Blood Count 9.3 4.8-10.8 X10*3/uL Red Blood Count 5.28 4.60-5.80 X10*6/uL Hemoglobin 14.6 14.0-18.0 g/dl Hematocrit 44.8 42.0-52.0 % Mean Corpuscular Volume 84.8 80.0-98.0 fL Mean Corpuscular Hemoglobin 27.7 27.0-33.0 pg Mean Corpuscular HGB Conc 32.6 31.0-36.0 g/dl Red Cell Distribution Width 14.6 11.0-16.0 % Platelet Count 276 160-400 X10*3/uL Mean Platelet Volume 10.3 9.4-12.4 fL NRBC Pct Auto 0.0 0.0-0.2 /100WBC NRBC Abs Auto 0.000 0.0-0.012 X10*3/uL Basic Metabolic Panel Reviewed date:01/30/2025 05:15:58 PM Interpretation: Performing Lab:[facility], [address] [place] [phone] Notes/Report: Sodium 138 135-145 mmol/L Potassium 3.8 3.3-5.1 mmol/L Chloride 106 96-108 mmol/L Carbon Dioxide 24 22-29 mmol/L Anion Gap 12 12-20 Blood Urea Nitrogen 7 9-16 mg/dL Creatinine 0.88 0.5-1.4 mg/dL Creatinine Clr Calc Pharmacy 122.4 eGFR (calculated from the MDRD study equation) and eCrCl (calculated from the Cockcroft-Gault equation) are based on different parameters and may not yield comparable results. If eCrCl result is absurd, please check patient's height/weight. Estimated Glomerular Filt Rate > 60 Chronic Kidney Disease: Estimated GFR < 60 mL/min/1.73m2 Severe Kidney Disease: Estimated GFR < 15 mL/min/1.73m2 Glucose Random 95 60-115 mg/dL Calcium 9.4 8.4-10.2 mg/dL Lipid Panel Reviewed date:01/30/2025 05:15:39 PM Interpretation: Performing Lab:[facility], [address] [place] [phone] Notes/Report: Triglycerides 81 <150 mg/dL Desirable Triglyceride: less than 150 mg/dL Borderline High Triglyceride 150-199 mg/dL High Triglyceride: 200-499 mg/dL Very High Triglyceride: greater than or equal to 5OO mg/dL Cholesterol 228 <200 mg/dL Desirable Cholesterol: less than 200 mg/dL Borderline High Cholesterol: 200-239 mg/dL High Cholesterol: greater than 239 mg/dL LDL Cholesterol Calculated 167 <100 mg/dL Desirable LDL: less than 100 mg/dL Near Optimal/Above Optimal LDL: 110-129 mg/dL Borderline High LDL: 130-159 mg/dL High LDL: 160-189 mg/dL Very High LDL: greater than or equal to 190 mg/dL HDL Cholesterol 45 >40 mg/dL Desirable HDL: greater than 40 mg/dL Note: This HDL assay may give artificially low results in patients with liver disease. Thyroid Stimulating Hormone Reviewed date:01/30/2025 05:15:31 PM Interpretation: Performing Lab:[facility], [address] [place] [phone] Notes/Report: Thyroid Stimulating Hormone 2.79 0.32-4.0 uIU/mL Note: A sustained TSH level above 2.5 uIU/mL may warrant further investigation. TSH 3rd Generation ([facility]) Complete Blood Count no Diff Reviewed date:01/31/2025 12:39:42 PM Interpretation: Performing Lab:[facility], [address] [place] [phone] Notes/Report: White Blood Count 7.7 4.8-10.8 X10*3/uL Red Blood Count 5.48 4.60-5.80 X10*6/uL Hemoglobin 15.3 14.0-18.0 g/dl Hematocrit 46.4 42.0-52.0 % Mean Corpuscular Volume 84.7 80.0-98.0 fL Mean Corpuscular Hemoglobin 27.9 27.0-33.0 pg Mean Corpuscular HGB Conc 33.0 31.0-36.0 g/dl Red Cell Distribution Width 14.3 11.0-16.0 % Platelet Count 283 160-400 X10*3/uL Mean Platelet Volume 9.9 9.4-12.4 fL NRBC Pct Auto 0.0 0.0-0.2 /100WBC NRBC Abs Auto 0.000 0.0-0.012 X10*3/uL Basic Metabolic Panel Reviewed date:01/31/2025 12:39:25 PM Interpretation: Performing Lab:[facility], [address] [place] [phone] Notes/Report: Sodium 138 135-145 mmol/L Potassium 3.8 3.3-5.1 mmol/L Chloride 103 96-108 mmol/L Carbon Dioxide 26 22-29 mmol/L Anion Gap 13 12-20 Blood Urea Nitrogen 11 9-16 mg/dL Creatinine 1.01 0.5-1.4 mg/dL Creatinine Clr Calc Pharmacy 106.6 eGFR (calculated from the MDRD study equation) and eCrCl (calculated from the Cockcroft-Gault equation) are based on different parameters and may not yield comparable results. If eCrCl result is absurd, please check patient's height/weight. Estimated Glomerular Filt Rate > 60 Chronic Kidney Disease: Estimated GFR < 60 mL/min/1.73m2 Severe Kidney Disease: Estimated GFR < 15 mL/min/1.73m2 Glucose Random 100 60-115 mg/dL Calcium 9.5 8.4-10.2 mg/dL Reason For Referral Reason Abnormal MRI of head with CVA and question of MS on MRI Diagnosis 1 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) Referral Organization Antonio Leung MD Referring Provider First Name Antonio Referring Provider Last Name Madhu Referring Provider Speciality Internal M edicine Referred Provider Noah aSms Referred Provider Specialty Neurology General Notes Graciela Golden 0 03/03/2025 02:45:26 PM >patient is aware of appt. Referral info faxed Referral Priority Routine Referral Appointment Date 03/07/2025 Medications Medication SIG (Take, Route, Frequency, Duration) Notes Start Date End Date Status Atorvastatin Calcium 80 MG 1 tablet Oral ly Once a day Active Plavix 75 MG 1 tablet Orally Once a day Active Aspirin 81 81 MG 1 tablet Orally Once a day Active Lisinopril 20 MG 1 tablet Orally Once a day Active Immunizations Vaccine [...] Problem Status W/U Status Risk Notes Problem CVA - Cerebrovascular accident (863178391) CVA (cerebral vascular accident) (434.91) Active confirmed Problem Occlusion of cerebral artery with stroke (6314023536928) CVA (cerebrovascular accident) (434.91) Active confirmed Problem 143490968 Annual physical exam (Z00.00) Active confirmed Problem Cerebral infarction due to thrombosis of cerebral arteries (296401052) 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) Active confirmed Problem 19228098 Essential hypertension (I10) Active confirmed Problem 62479546 Iron deficiency anemia, unspecified iron deficiency anemia type (D50.9) Active confirmed Problem 59593451 Crohns disease without complication, unspecified gastrointestinal tract location (K50.90) Active confirmed Problem 892669504 Elevated sedimentation rate (R70.0) Active confirmed Problem 57515759 Elevated cholesterol (E78.00) Active confirmed Problem 396300144 BMI 30.0-30.9,ad ult (Z68.30) Active confirmed Vital Signs Blood pressure diastolic 80 mm Hg 03/03/2025 ryley ght is down 26 pounds since 12-23-24 Height 73 in 03/03/2025 weight is down 26 pounds since 12-23-24 Blood pressure systolic 98 mm Hg 03/03/2025 weig ht is down 26 pounds since 12-23-24 Weight 230 lbs 03/03/2025 weight is down 26 pounds since 12-23-24 BMI 30.34 kg/m2 03/03/2025 weight is down 26 pounds since 12-23-24 Encounters Encounter Location Date Provider Diagnosis Antonio Leung MD [address] [place] [id number] 06/17/2024 Antonio Leung Blood tests for rout ine general physical examination Z00.00 ; Iron deficiency anemia, unspecified iron deficiency anemia type D50.9 and Elevated cholesterol E78.00 Antonio Leung MD [address] [place] [id number] 06/24/2024 Antonio Leung Iron deficiency anem ia, unspecified iron deficiency anemia type D50.9 ; Annual physical exam Z00.00 ; Elevated cholesterol E78.00 ; Essential hypertension I10 ; Colon cancer screening Z12.11 and Depression screening Z13.31 Antonio Leung MD [address] [place] [address] [id number] 12/23/2024 Antonio Leung Crohns disease witho ut complication, unspecified gastrointestinal tract location K50.90 and Essential hypertension I10 Antonio Leung MD [address] [place] [address] [id number] 03/03/2025 Antonio Leung Abnormal MRI of head R93.0 and Cerebral infarction due to thrombosis of left posterior cerebral artery I63.332 Antonio Leung MD [address] [place] [address] [id number] 07/01/2024 Antonio Leung Colon cancer screeni ng Z12.11 Antonio Leung MD [address] [place] [address] [id number] 01/28/2025 Antonio Leung MD [address] [place] [address] Drive [address] [place] [address] [id number] 02/01/2025 Antonio Leung MD [address] [place] [address] [id number] 02/02/2025 Antonio Leung Assessments Encounter Date Diagnosis (ICD Code) Assessment Notes Treatment Notes Treatment Clinical Notes Section Notes 06/17/2024 Blood tests for routine general physical examination (ICD-10 - Z00.00) 06/17/2024 Iron deficiency anemia, unspecified iron deficiency anemia type (ICD-10 - D50.9) 06/24/2024 Iron deficiency anemia, unspecified iron deficiency anemia type (ICD-10 - D50.9) 06/24/2024 Annual physical exam (ICD-10 - Z00.00) labs reviewed and discussed with patient 12/23/2024 Crohns disease without complication, unspecified gastrointestinal tract location (ICD-10 - K50.90) doing well, no issues, will continue to monitor 03/03/2025 Abnormal MRI of head (ICD-10 - R93.0) with cva and question of ms on mri. will need follow up with neurology 03/03/2025 Cerebral infarction due to thrombosis of left posterior cerebral artery (ICD-10 - I63.332) is improving with rehab 07/01/2024 Colon cancer screening (ICD-10 - Z12.11) 06/17/2024 Elevated cholesterol (ICD-10 - E78.00) 06/24/2024 Elevated cholesterol (ICD-10 - E78.00) 12/23/2024 Essential hypertension (ICD-10 - I10) stable, will continue current regiment 06/24/2024 Essential hypertension (ICD-10 - I10) 06/24/2024 Colon cancer screening (ICD-10 - Z12.11) guaiac negative 06/24/2024 Depression screening (ICD-10 - Z13.31) 12/23/2024 Other has not been hiking like he usuallydoes. checks weight regularly 03/03/2025 Other Total time spent on the date of the encounter is 35 minutes including both face to face time spent and time spent reviewing documentation, pertinent lab data, studies and counseling the patient. Plan Of Treatment Pending Test Test Name Order Date Electrocardiogram (EKG) 03/03/2018 Next Appt Details Provider Name:Antonio rodriguezr, 06/21/2025 07:30:00 AM, [address] [place] [address], [address], [place], [place], [id number], Provider Name:Antonio rodriguezr, 06/28/2025 01:00:00 PM, [address] [place] [address], [address], [place], [place], [id number], Insurance Providers Payer Name Payer Address Payer Phone Subscriber Number Group Number Insured Name Patient Relationship to Insured Coverage Start Date Coverage End Date [employer] [facility] [address] [place], [place] [id number] Caesar Humphrey Self - patient is the insured Medical (General) History Medical History History ICD Code chron's disease colonoscopy 2011 due in 5 ye ars, declined in September of 2018; Colonoscopy 08/20/2019 - Dr. Mark (repeat pending biopsy)
--- OUTSIDE RECORDS SUMMARY | 2025-03-07 17:01 | XMS_ITS | Patient Health Record ---
Author Organization [facility] Address [address] [place] [address] Care Team Providers Care Environmental Journalist Name Role Phone Antonio Leung MD Primary [...] Problem Status W/U Status Risk Notes Problem 63470903 Crohn's disease of both small and large intestine without complication (K50.80) Active confirmed Problem 613845623 Abnormal finding s in stool (R19.5) Active confirmed Problem 3281635 Crohns disease o f large intestine without complication (K50.10) Active confirmed Problem 27972354 Hypertension, unspecified type (I10) Active confirmed Problem 57682506 Anal stricture (K62.4) Active confirmed Plan Of Treatment Future Test Test Name Order Date COLONOSCOPY 08/01/2011 COLONOSCOPY 04/14/2019 Insurance Providers Payer Name Payer Address Payer Phone Subscriber Number Group Number Insured Name Patient Relationship to Insured Coverage Start Date Coverage End Date [facility] [address] [place], [place] [id number] [phone] [id number] CATHERINE GARCIA Self - patient is the [...]
--- OUTSIDE RECORDS SUMMARY | 2025-03-07 17:01 | XMS_ITS | Clinical Summary ---
Author Organization [facility] Facility Address [address] [facility] [address] [place] [address] [place] [address] Care Team Providers Care Hand Spring Former Name Role Phone Unavailable Primary Care Provider Unavailabl e Encounters Date Type Department Care Team Description 03/03/2025 Documentation Only [facility] [address] [place] [address] Emma Moreno from Last 3 Months Social History Tobacco Use Types Packs/Day Years Used Date Smoking Tobacco: Never Assessed Sex and Gender Information Value Date Recorded Sex Assigned at Not on file Legal Sex Male 12:48 PM EDT Gender Identity Not on file Sexual Orientation Not on file Plan of Treatment Health Maintenance Due Date Last Done Comments Colorectal Cancer Screening: Annual FOBT 2014 Colorectal Cancer Screening: Colonoscopy 2014 Colorectal Cancer Screening: Sigmoidoscopy 2014 Pneumococcal Vaccine: 50+ Ye ars (1 of 1 - PCV) 2015 Influenza Vaccine (#1) 2025 Hepatitis B Vaccine Aged Out No longe r eligible based on patient's age to complete this topic Insurance [facility]
--- OUTSIDE RECORDS SUMMARY | 2025-03-07 17:01 | XMS_ITS | Encounter Summary ---
Author Organization [facility] Address [address] [place] [address] Phone Care Team Providers Care Skirt Trimmer Name Role Phone Unavailable Primary Care Provider Unavailabl e Encounter Details Date Type Department Care Team (Late st Contact Info) Description 03/03/2025 Documentation Only [facility] [place], [address] [place] [address] Emma Moreno [address] [place] [address] Social History Tobacco Use Types Packs/Day Years Used Date Smoking Tobacco: Never Assessed Sex and Gender Information Value Date Recorded Sex Assigned at Not on file Legal Sex Male 12:48 PM EDT Gender Identity Not on file Sexual Orientation Not on file documented as of this encounter Plan of Treatment Not on file documented as of this encounter Visit Diagnoses Not on filedocumented in this encounter
== END 2025-03-07 16:06 | disposition home or self-care (01) ==
LOC: HO.HSM 15:23
PROVIDERS: PCP Internal Medicine; Visit Provider Psychiatry & Neurology Neurology
DX: G46.2 Posterior cerebral artery syndrome (principal); G37.9 Demyelinating disease of central nervous system, unspecified
CPT/HCPCS: 99214

== ENCOUNTER 2025-06-21 10:34 | Outpatient (REF) | payer BC, SELFPAY ==
[2025-06-21 10:38] LABS: MANUAL DIFF FLAG NO
[2025-06-21 10:46] LABS: Hematocrit 48.6 % (42.0-52.0); Hemoglobin 15.4 g/dl (14.0-18.0); Imm Gran Abs Auto 0.02 X10*3/uL (0.00-0.03); Imm Gran Pct Auto 0.3 % (0.0-0.4); Lymphocytes Absolute Auto 2.6 X10*3/uL (1.2-4.9); Mean Corpuscular HGB Conc 31.7 g/dl (31.0-36.0); Mean Corpuscular Hemoglobin 28.4 pg (27.0-33.0); Mean Corpuscular Volume 89.7 fL (80.0-98.0); NRBC Abs Auto 0.000 X10*3/uL (0.0-0.012); NRBC Pct Auto 0.0 /100WBC (0.0-0.2); Platelet Count 305 X10*3/uL (160-400); Red Blood Count 5.42 X10*6/uL (4.60-5.80); White Blood Count 7.0 X10*3/uL (4.8-10.8)
[2025-06-21 10:48] LABS: Appearance Urine Clear; Glucose Urine UA Negative (Negative); PH 7.0 (5.0-9.0); Specific Gravity - Urine 1.015 (1.005-1.025)
[2025-06-21 11:17] LABS: Albumin Level 4.6 g/dL (3.5-5.0); Alkaline Phosphatase 92 U/L (39-117); Anion Gap 13 (12-20); Aspartate Amino Transferase 43 U/L (5-37); Blood Urea Nitrogen 10 mg/dL (9-16); Calcium 10.1 mg/dL (8.4-10.2); Carbon Dioxide 28 mmol/L (22-29); Chloride 103 mmol/L (96-108); Cholesterol 252 mg/dL (<200); Estimated Glomerular Filt Rate > 60; HDL Cholesterol 49 mg/dL (>40); Iron 101 mcg/dL (45-160); Percent Iron Saturation 35 % (15-50); Potassium 3.8 mmol/L (3.3-5.1); Sodium 140 mmol/L (135-145); Total Iron Binding Capacity 291 mcg/dL (228-428); Total Protein 8.6 g/dL (6.5-8.0); Triglycerides 136 mg/dL (<150); Unsaturated Iron Binding 190 ug/dL
[2025-06-21 11:27] LABS: PSA,Total (Free>4and<10) 0.29 ng/mL (0.00-4.00)
[2025-06-21 11:35] LABS: Alanine Aminotransferase 36 U/L (0-40)
== END 2025-06-21 10:35 ==
LOC: HO.LNP 10:34
PROVIDERS: Visit Provider Internal Medicine
DX: Z00.00 Encounter for general adult medical examination without abnormal findings (principal); Z12.5 Encounter for screening for malignant neoplasm of prostate; Z13.0 Encounter for screening for diseases of the blood and blood-forming organs and certain disorders involving the immune mechanism; Z13.6 Encounter for screening for cardiovascular disorders
CPT/HCPCS: 80053; 80061; 81001; 83540; 84153; 85025